=== PATIENT | female | born 1970 | race American Indian/Alaskan Native ===

== ENCOUNTER 2019-03-19 22:03 | Emergency (ER) | payer OTHER ==
[2019-03-19] MEDS ORDERED: Sodium Chloride 0.9% 1,000 ML IV ONE (22:19)
--- NOTE | 2019-03-19 22:35 | EDM.PDOC ---
ED HPI GENERAL MEDICAL PROBLEM - General Chief Complaint: General Stated Complaint: EXHAUSTION Time Seen by Provider: 03/19/19 22:15 - History of Present Illness INITIAL COMMENTS - FREE TEXT/NARRATIVE: HISTORY AND PHYSICAL: History of present illness: Patient's 48-year-old white female presents with concern of generalized weakness and diarrhea over last several days no fever chills nausea vomiting or other complaints. Patient has history of hypertension. Review of systems: As per history of present illness and below otherwise all systems reviewed and negative. Past medical history: As per history of present illness and as reviewed below otherwise noncontributory. Surgical history: As per history of present illness and as reviewed below otherwise noncontributory. Social history: No reported history of drug or alcohol abuse. Family history: As per history of present illness and as reviewed below otherwise noncontributory. Physical exam: HEENT: Atraumatic, normocephalic, pupils reactive, negative for conjunctival pallor or scleral icterus, mucous membranes dry, throat clear, neck supple, nontender, trachea midline. Lungs: Clear to auscultation, breath sounds equal bilaterally, chest nontender. Heart: S1S2, regular, negative for clicks, rubs, or JVD. Abdomen: Soft, nondistended, nontender. Negative for masses or hepatosplenomegaly. Negative for costovertebral tenderness. Pelvis: Stable nontender. Genitourinary: Deferred. Rectal: Deferred. Extremities: Atraumatic, negative for cords or calf pain. Neurovascular unremarkable. Neuro: Awake, alert, oriented. Cranial nerves II through XII unremarkable. Cerebellum unremarkable. Motor and sensory unremarkable throughout. Exam nonfocal. Diagnostics: CBC CMP stool for C&S O&P and C. difficile EKG Therapeutics: Saline 1 L bolus Impression: #1 diarrhea #2 dehydration Definitive disposition and diagnosis as appropriate pending reevaluation and review of above. - Related Data Allergies Allergy/AdvReac Type Severity Reaction Status Date / Time No Known Allergies Allergy Verified 03/19/19 22:12 Home Meds: Home Meds Lisinopril 03/19/19 [History] hydroCHLOROthiazide [Hydrochlorothiazide] 03/19/19 [History] Past Medical History - Past Surgical History Female Surgical History: Reports: Tubal Ligation Social & Family History - Tobacco Use Smoking Status *Q: Current Every Day Smoker Years of Tobacco use: 20 Packs/Tins Daily: 0.5 - Caffeine Use Caffeine Use: Reports: Coffee - Recreational Drug Use Recreational Drug Use: No ED ROS GENERAL - Review of Systems Review Of Systems: ROS reveals no pertinent complaints other than HPI. ED EXAM, GENERAL - Physical Exam Exam: See Below (See dictation) Course - Vital Signs Last Recorded V/S: Last Vital Signs Temp 35.7 C 03/19/19 22:16 Pulse 82 03/20/19 00:11 Resp 17 03/20/19 00:11 BP 114/69 03/20/19 00:11 Pulse Ox 98 03/20/19 00:11 - Orders/Labs/Meds Orders: Active Orders 24 hr Category Date Time Status EKG Documentation Completion [RC] STAT Care 03/19/19 22:18 Active CDIFF TOX A+B [OP] Stat Lab 03/19/19 22:19 Ordered CULTURE STOOL + CAMPY+SHIGATOX [RM] Stat Lab 03/19/19 22:19 Ordered CULTURE URINE [RM] Stat Lab 03/19/19 23:38 Received UA W/MICROSCOPIC [URIN] Stat Lab 03/19/19 23:38 Results Isolation [COMM] Stat Oth 03/19/19 22:19 Ordered Labs: Laboratory Tests 03/19/19 03/19/19 03/19/19 Range/Units 22:35 22:35 23:38 WBC 14.22 H (4.0-11.0) K/uL RBC 3.73 L (4.30-5.90) M/uL Hgb 10.9 L (12.0-16.0) g/dL Hct 34.6 L (36.0-46.0) % MCV 92.8 (80.0-98.0) fL MCH 29.2 (27.0-32.0) pg MCHC 31.5 (31.0-37.0) g/dL RDW Std Deviation 48.6 (28.0-62.0) fl RDW Coeff of Anne 14 (11.0-15.0) % Plt Count 298 (150-400) K/uL MPV 11.60 (7.40-12.00) fL Neut % (Auto) 72.6 (48.0-80.0) % Lymph % (Auto) 20.5 (16.0-40.0) % [place] % (Auto) 6.1 (0.0-15.0) % Eos % (Auto) 0.7 (0.0-7.0) % Baso % (Auto) 0.1 (0.0-1.5) % Neut # (Auto) 10.3 H (1.4-5.7) K/uL Lymph # (Auto) 2.9 H (0.6-2.4) K/uL [place] # (Auto) 0.9 H (0.0-0.8) K/uL Eos # (Auto) 0.1 (0.0-0.7) K/uL Baso # (Auto) 0.0 (0.0-0.1) K/uL Nucleated RBC % 0.0 /100WBC Nucleated RBCs # 0 K/uL Sodium 140 (136-145) mmol/L Potassium 4.4 (3.5-5.1) mmol/L Chloride 103 (98-107) mmol/L Carbon Dioxide 28.0 (21.0-32.0) mmol/L BUN 33 H (7.0-18.0) mg/dL Creatinine 1.3 H (0.6-1.0) mg/dL Est Cr Clr Drug Dosing 50.35 mL/min Estimated GFR (MDRD) 43.4 ml/min Glucose 115 H (74-106) mg/dL Calcium 8.9 (8.5-10.1) mg/dL Total Bilirubin 0.2 (0.2-1.0) mg/dL AST 30 (15-37) IU/L ALT 51 (14-63) IU/L Alkaline Phosphatase 86 (46-116) U/L Total Protein 7.4 (6.4-8.2) g/dL Albumin 3.5 (3.4-5.0) g/dL Globulin 3.9 (2.6-4.0) g/dL Albumin/Globulin Ratio 0.9 (0.9-1.6) Urine Color YELLOW Urine Appearance CLEAR Urine pH 5.5 (5.0-8.0) Ur Specific [place] 1.025 (1.001-1.035) Urine Protein NEGATIVE (NEGATIVE) mg/dL Urine Glucose (UA) NEGATIVE (NEGATIVE) mg/dL Urine Ketones NEGATIVE (NEGATIVE) mg/dL Urine Occult Blood TRACE-INTACT H (NEGATIVE) Urine Nitrite NEGATIVE (NEGATIVE) Urine Bilirubin NEGATIVE (NEGATIVE) Urine Urobilinogen 0.2 (<2.0) EU/dL Ur Leukocyte Esterase TRACE H (NEGATIVE) Meds: Medications Discontinued Medications Generic Name Dose Route Start Last Admin Trade Name Tasha PRN Reason Stop Dose Admin Sodium Chloride 1,000 mls @ 999 mls/hr 03/19/19 22:19 03/19/19 22:47 Normal Saline IV 03/19/19 23:19 999 mls/hr STAT ONE Administration Iopamidol 80 ml 03/20/19 00:03 03/20/19 00:04 Isovue Multipack-370 (76%) IVPUSH 03/20/19 00:04 80 ml ONETIME ONE Administration Departure - Departure Time of Disposition: 00:57 Disposition: Home, Self-Care 01 Condition: Good Clinical Impression: Diarrhea, Dehydration - Discharge Information Referrals: PCP,Unknown [Primary Care Provider] - Forms: ED Department Discharge Additional Instructions: The following information is given to patients seen in the emergency department who are being discharged to home. This information is to outline your options for follow-up care. We provide all patients seen in our emergency department with a follow-up referral. The need for follow-up, as well as the timing and circumstances, are variable depending upon the specifics of your emergency department visit. If you don't have a primary care physician on staff, we will provide you with a referral. We always advise you to contact your personal physician following an emergency department visit to inform them of the circumstance of the visit and for follow-up with them and/or the need for any referrals to a consulting specialist. The emergency department will also refer you to a specialist when appropriate. This referral assures that you have the opportunity for followup care with a specialist. All of these measure are taken in an effort to provide you with optimal care, which includes your followup. Under all circumstances we always encourage you to contact your private physician who remains a resource for coordinating your care. When calling for followup care, please make the office aware that this follow-up is from your recent emergency room visit. If for any reason you are refused follow-up, please contact the [facility] emergency department at and asked to speak to the emergency department charge nurse. Push fluids clear liquids as discussed avoid dairy 72 hours follow-up primary medical doctor return as needed as discussed - My Orders Last 24 Hours: My Active Orders 03/19/19 22:18 EKG Documentation Completion [RC] STAT 03/19/19 22:19 CDIFF TOX A+B [OP] Stat CULTURE STOOL + CAMPY+SHIGATOX [RM] Stat Isolation [COMM] Stat 03/19/19 23:38 CULTURE URINE [RM] Stat UA W/MICROSCOPIC [URIN] Stat - Assessment/Plan Last 24 Hours: My Active Orders 03/19/19 22:18 EKG Documentation Completion [RC] STAT 03/19/19 22:19 CDIFF TOX A+B [OP] Stat CULTURE STOOL + CAMPY+SHIGATOX [RM] Stat Isolation [COMM] Stat 03/19/19 23:38 CULTURE URINE [RM] Stat UA W/MICROSCOPIC [URIN] Stat
[2019-03-20] MEDS ORDERED: Iopamidol 755 MG/ML 500 ML Multipack Bottle IVPUSH ONE (00:03)
--- NOTE | 2019-03-20 00:34 | CT ---
INDICATION: Bloody stools x1 day. History of hernia TECHNIQUE: CT abdomen and pelvis acquired with IV contrast. 80 cc Isovue 370 COMPARISON: None FINDINGS: Lower chest: Unremarkable. Liver: Unremarkable. Spleen: Unremarkable. Pancreas: Unremarkable. Gallbladder and bile ducts: Unremarkable. Kidneys: Unremarkable. Adrenal glands: Unremarkable. GI tract: Large ventral hernia containing normal appearing loops of large and small bowel.. Appendix is normal. Vascular structures: Unremarkable. Lymph nodes: Unremarkable. Miscellaneous: Unremarkable. No free air or significant free fluid. Pelvic Organs: Unremarkable. Bones: Unremarkable for age. IMPRESSION: Large ventral abdominal wall hernia containing normal appearing loops of large and small bowel. No definitive findings to explain the patient`s bloody stools. Dictated by Isidro Lin MD @ 03/20/2019 12:33:15 AM Please note that all CT scans at this facility use dose modulation, iterative reconstruction, and/or weight-based dosing when appropriate to reduce radiation dose to as low as reasonably achievable. Dictated by: Isidro Lin MD @ 03/20/2019 00:33:26 (Electronically Signed)
== END 2019-03-20 01:07 | disposition home or self-care (01) ==
LOC: MW.ED 22:03
DX: E86.0 Dehydration (principal); R19.7 Diarrhea, unspecified; F17.210 Nicotine dependence, cigarettes, uncomplicated; Z79.899 Other long term (current) drug therapy
CPT/HCPCS: 36415; 74177; 80053; 81001; 85025; 87086; 93005; 96360; 99284; J7040; Q9967; 99283

== ENCOUNTER 2021-01-14 15:08 | Emergency (ER) | payer OTHER ==
[2021-01-14] MEDS ORDERED: Aspirin 81 MG Tab.Chew PO ONE (15:29)
[2021-01-14] MEDS ORDERED: Sodium Chloride 0.9% 2.5 ML Syringe FLUSH PRN (15:29)
[2021-01-14] MEDS ORDERED: Nitroglycerin 0.4 MG Tab.SL SL ONE ×2 (15:29→16:41)
[2021-01-14] MEDS ORDERED: Sodium Chloride 0.9% 10 ML Syringe FLUSH PRN (15:29)
--- NOTE | 2021-01-14 15:48 | CR ---
INDICATION: Chest pain TECHNIQUE: Chest 1 view COMPARISON: None FINDINGS: Cardiovascular and mediastinum: Heart size and vasculature are normal in caliber and appearance. Lungs and pleural spaces: Lungs are clear. No sign of infiltrate or mass. No sign of pleural effusion. No pneumothorax. Bones and soft tissues: No significant findings. IMPRESSION: No acute or significant findings. Dictated by John Gaspar MD @ Jan 14 2021 3:47PM Signed by Dr. John Gaspar @ Jan 14 2021 3:47PM
[2021-01-14 15:59] LABS: BLOOD UREA NITROGEN,BUN 16 mg/dL (7.0-18.0); CARBON DIOXIDE,CO2 26.8 mmol/L (21.0-32.0); CHLORIDE,CL 101 mmol/L (98-107); GLUCOSE RANDOM 116 mg/dL (74-106); POTASSIUM,K 3.6 mmol/L (3.5-5.1); SODIUM,NA 138 mmol/L (136-145)
--- NOTE | 2021-01-14 16:05 | EDM.PDOC ---
ED HPI GENERAL MEDICAL PROBLEM - General Chief Complaint: Chest Pain Stated Complaint: chest pains Time Seen by Provider: 01/14/21 15:11 - History of Present Illness INITIAL COMMENTS - FREE TEXT/NARRATIVE: 50-year-old female with a history of hypertension noncompliant on her lisinopril and hydrochlorothiazide who is presenting with chest pain. Patient reports a few hours of constant left-sided chest pressure initially 7 out of 10 now 5 out of 10 with radiation to the left neck and jaw. No vertigo no shortness of breath no tearing pain no pain to the back. No nausea or vomiting no syncope or near syncope. Patient denies prior similar episodes. She states that she sometimes misses her blood pressure medications she states that she took them both approximately 2 hours ago and does not take them every day. She says that her normal systolic is in the 190s. chest Pain Score (Numeric/FACES): 6 - Related Data Allergies Allergy/AdvReac Type Severity Reaction Status Date / Time No Known Allergies Allergy Verified 01/14/21 15:13 Home Meds: Home Meds Lisinopril 03/19/19 [History] hydroCHLOROthiazide [Hydrochlorothiazide] 03/19/19 [History] Past Medical History Cardiovascular History: Reports: Hypertension - Past Surgical History Female Surgical History: Reports: Tubal Ligation Social & Family History - Family History Family Medical History: No Pertinent Family History - Tobacco Use Tobacco Use Status *Q: Current Every Day Tobacco User Years of Tobacco use: 20 Packs/Tins Daily: 0.5 - Caffeine Use Caffeine Use: Reports: Coffee - Recreational Drug Use Recreational Drug Use: No ED ROS GENERAL - Review of Systems Review Of Systems: See Below Free Text/Narrative/Comment: General: No fever. Skin: No rash. Eyes: No vision problems. ENT: No sore throat. Neck: No neck stiffness. Respiratory: No shortness of breath. Cardiac: Per HPI Gastrointestinal: No nausea, vomiting or abdominal pain. Urinary: No dysuria. Musculoskeletal: No myalgias/arthralgias. Neurologic: No headache. ED EXAM, GENERAL - Physical Exam Exam: See Below Free Text/Narrative:: General Appearance: No acute distress, appears comfortable Skin: No rash HEENT: Normocephalic/atraumatic, sclera anicteric, mucous membranes moist Neck: Normal range of motion Chest and Lungs: Bilateral breath sounds, clear to auscultation Cardiovascular: Regular rate and rhythm, no murmur Abdomen: Soft, non-tender Back: Normal Musculoskeletal: No edema or tenderness Neurologic: Awake, alert, no obvious deficits, moving all extremities Psychiatric: Appropriate, cooperative #1 Interpretation EKG Date: 01/14/21 Time: 15:20 EKG Interpretation Comments: Normal sinus rhythm rate of 75 nonspecific intraventricular conduction delay QRS is 119 no acute ischemia normal axis Course - Vital Signs Last Recorded V/S: Last Vital Signs Temp 97.2 F 01/14/21 15:10 Pulse 70 01/14/21 17:35 Resp 18 01/14/21 17:35 BP 156/90 H 01/14/21 17:35 Pulse Ox 94 L 01/14/21 17:35 - Orders/Labs/Meds Orders: Active Orders 24 hr Category Date Time Status COVID-19/FLU A+B [MOLEC] Stat Lab 01/14/21 16:43 Ordered Sodium Chloride 0.9% [Saline Flush] Med 01/14/21 15:29 Active 10 ml FLUSH ASDIRECTED PRN Sodium Chloride 0.9% [Saline Flush] Med 01/14/21 15:29 Active 2.5 ml FLUSH ASDIRECTED PRN Saline Lock Insert [OM.PC] Stat Oth 01/14/21 15:29 Ordered Medication Orders Sodium Chloride (Sodium Chloride 0.9% 10 Ml Syringe) 10 ml FLUSH ASDIRECTED PRN PRN Reason: Keep Vein Open Last Admin: 01/14/21 15:44 Dose: 10 ml Documented by: BIANCA Sodium Chloride (Sodium Chloride 0.9% 2.5 Ml Syringe) 2.5 ml FLUSH ASDIRECTED PRN PRN Reason: Keep Vein Open Last Admin: 01/14/21 15:44 Dose: 2.5 ml Documented by: BIANCA Labs: Laboratory Tests 01/14/21 01/14/21 Range/Units 15:19 15:19 WBC 12.82 H (4.0-11.0) K/uL RBC 4.97 (4.30-5.90) M/uL Hgb 14.7 (12.0-16.0) g/dL Hct 46.2 H (36.0-46.0) % MCV 93.0 (80.0-98.0) fL MCH 29.6 (27.0-32.0) pg MCHC 31.8 (31.0-37.0) g/dL RDW Std Deviation 47.7 (28.0-62.0) fl RDW Coeff of Anne 14 (11.0-15.0) % Plt Count 199 (150-400) K/uL MPV 12.90 H (7.40-12.00) fL Neut % (Auto) 77.9 (48.0-80.0) % Lymph % (Auto) 14.4 L (16.0-40.0) % [place] % (Auto) 6.4 (0.0-15.0) % Eos % (Auto) 1.1 (0.0-7.0) % Baso % (Auto) 0.2 (0.0-1.5) % Neut # (Auto) 10.0 H (1.4-5.7) K/uL Lymph # (Auto) 1.9 (0.6-2.4) K/uL [place] # (Auto) 0.8 (0.0-0.8) K/uL Eos # (Auto) 0.1 (0.0-0.7) K/uL Baso # (Auto) 0.0 (0.0-0.1) K/uL Nucleated RBC % 0.0 /100WBC Nucleated RBCs # 0 K/uL Sodium 138 (136-145) mmol/L Potassium 3.6 (3.5-5.1) mmol/L Chloride 101 (98-107) mmol/L Carbon Dioxide 26.8 (21.0-32.0) mmol/L BUN 16 (7.0-18.0) mg/dL Creatinine 0.8 (0.6-1.0) mg/dL Est Cr Clr Drug Dosing 79.99 mL/min Estimated GFR (MDRD) > 60.0 ml/min Glucose 116 H (74-106) mg/dL Calcium 8.7 (8.5-10.1) mg/dL Total Bilirubin 0.1 L (0.2-1.0) mg/dL AST 14 L (15-37) IU/L ALT 25 (14-63) IU/L Alkaline Phosphatase 113 (46-116) U/L Troponin I < 0.050 (0.000-0.056) ng/mL Total Protein 7.8 (6.4-8.2) g/dL Albumin 3.4 (3.4-5.0) g/dL Globulin 4.4 H (2.6-4.0) g/dL Albumin/Globulin Ratio 0.8 L (0.9-1.6) Meds: Medications Generic Name Dose Route Start Last Admin Trade Name Freq PRN Reason Stop Dose Admin Sodium Chloride 10 ml 01/14/21 15:29 01/14/21 15:44 Sodium Chloride 0.9% 10 Ml Syringe FLUSH 10 ml ASDIRECTED PRN Administration Keep Vein Open Sodium Chloride 2.5 ml 01/14/21 15:29 01/14/21 15:44 Sodium Chloride 0.9% 2.5 Ml Syringe FLUSH 2.5 ml ASDIRECTED PRN Administration Keep Vein Open Discontinued Medications Generic Name Dose Route Start Last Admin Trade Name Freq PRN Reason Stop Dose Admin Aspirin 324 mg 01/14/21 15:29 01/14/21 15:43 Aspirin 81 Mg Tab.Chew PO 01/14/21 15:30 324 mg ONETIME ONE Administration Morphine Sulfate 2 mg 01/14/21 16:41 Morphine 2 Mg/Ml Syringe IVPUSH 01/14/21 16:42 ONETIME ONE Nitroglycerin 0.4 mg 01/14/21 15:29 01/14/21 15:44 Nitroglycerin 0.4 Mg Tab.Sl SL 01/14/21 15:30 0.4 mg ONETIME ONE Administration Nitroglycerin 0.4 mg 01/14/21 16:41 Nitroglycerin 0.4 Mg Tab.Sl SL 01/14/21 16:42 ONETIME ONE Ondansetron HCl 4 mg 01/14/21 16:42 Ondansetron 4 Mg/2 Ml Sdv IVPUSH 01/14/21 16:43 ONETIME ONE Departure - Departure Time of Disposition: 17:53 Disposition: Against Medical Advice 07 Condition: Good Clinical Impression: Uncontrolled hypertension, Exertional chest pain - Discharge Information *PRESCRIPTION DRUG MONITORING PROGRAM REVIEWED*: Not Applicable *COPY OF PRESCRIPTION DRUG MONITORING REPORT IN PATIENT PATRICK: Not Applicable Instructions: Hypertension, Adult, [id number], Angina, [id number] Forms: ED Department Discharge Additional Instructions: As we discussed you are leaving AGAINST MEDICAL ADVICE. I am very concerned that the chest pain that you have when you walk around is due to a partially blocked artery in your heart and that you could be having a small heart attack. We discussed staying for additional blood work and blood pressure management. However you have opted to leave AGAINST MEDICAL ADVICE. We discussed that severe high blood pressure such as years puts you at risk for heart attack and stroke and that because you are having exertional chest pain you could be having a small heart attack at this time. We also discussed that these conditions can lead to permanent disability or . Despite these risks you have made the choice to leave AGAINST MEDICAL ADVICE. You are welcome and encouraged to return to the ER at any time should you change your mind and please follow-up with your primary care doctor soon as possible. The following information is given to patients seen in the emergency department who are being discharged to home. This information is to outline your options for follow-up care. We provide all patients seen in our emergency department with a follow-up referral. The need for follow-up, as well as the timing and circumstances, are variable depending upon the specifics of your emergency department visit. If you don't have a primary care physician on staff, we will provide you with a referral. We always advise you to contact your personal physician following an emergency department visit to inform them of the circumstance of the visit and for follow-up with them and/or the need for any referrals to a consulting specialist. The emergency department will also refer you to a specialist when appropriate. This referral assures that you have the opportunity for follow-up care with a specialist. All of these measure are taken in an effort to provide you with optimal care, which includes your follow-up. Under all circumstances we always encourage you to contact your private physician who remains a resource for coordinating your care. When calling for follow-up care, please make the office aware that this follow-up is from your recent emergency room visit. If for any reason you are refused follow-up, please contact the [facility] Emergency Depart ment at and asked to speak to the emergency department charge nurse. Sepsis Event Note (ED) - Evaluation Sepsis Screening Result: No Definite Risk - Focused Exam Vital Signs: Vital Signs Temp Pulse Resp BP BP Pulse Ox 01/14/21 17:35 70 18 156/90 H 94 L 01/14/21 15:47 75 18 164/95 H 95 01/14/21 15:45 72 20 185/100 H 96 01/14/21 15:44 185/100 H 01/14/21 15:10 97.2 F 80 18 96 - My Orders Last 24 Hours: My Active Orders 01/14/21 15:29 Sodium Chloride 0.9% [Saline Flush] 10 ml FLUSH ASDIRECTED PRN Sodium Chloride 0.9% [Saline Flush] 2.5 ml FLUSH ASDIRECTED PRN Saline Lock Insert [OM.PC] Stat 01/14/21 16:43 COVID-19/FLU A+B [MOLEC] Stat - Assessment/Plan Last 24 Hours: My Active Orders 01/14/21 15:29 Sodium Chloride 0.9% [Saline Flush] 10 ml FLUSH ASDIRECTED PRN Sodium Chloride 0.9% [Saline Flush] 2.5 ml FLUSH ASDIRECTED PRN Saline Lock Insert [OM.PC] Stat 01/14/21 16:43 COVID-19/FLU A+B [MOLEC] Stat Assessment:: 50-year-old female presenting with severe hypertension and chest pain. Though she is quite hypertensive and she has no vertigo that would suggest vertebral a rtery dissection she has no severe pain she has no tearing pain she has no pain in the back given this I think aortic dissection is unlikely. ACS is certainly a consideration symptomatic hypertension is a consideration. We will attempt to lower blood pressure by approximately 25%. Sublingual nitroglycerin has been ordered aspirin as well CBC CMP troponin chest x-ray pending and will reassess. Following the nitro her systolic is decreased to 162 her pain is improved but is still present I do not wish to make her more hypotensive and so we will reassess her chest pain in 15 minutes. 1650: Patient's chest pain had resolved. Initial labs with normal troponin white blood cell count minimally elevated. Patient had recurrence of chest pain with the exertion of walking to the bathroom. We will repeat sublingual nitro and give a small dose of morphine as well. Given this and her heart score 4 I think admission for serial enzymes is prudent and will discuss with the hospitalist Jessie davis pending. 1750: There was a delay in final disposition due to simultaneous stroke codes and STEMI's and other patients. The patient now does not agree to admission and wants to leave AGAINST MEDICAL ADVICE. We discussed again that I am concerned that her exertional chest pain represents ischemic heart disease and concerned about the potential for missed heart attack I am concerned that uncontrolled high blood pressure as high as hers can lead to stroke. She is aware of all of these concerns. She also understands that these conditions can lead to permanent disability or . Despite these risks she is adamant that she is not staying in the hospital and that she is going to follow-up with her clinic. She demonstrates understanding of these risks and despite that is adamant that she is leaving against advice. Patient will sign out AMA. Patient is chest pain-free at this time
[2021-01-14] MEDS ORDERED: Morphine 2 MG/ML SYRINGE IVPUSH ONE (16:41)
[2021-01-14] MEDS ORDERED: Ondansetron 4 MG/2 ML SDV IVPUSH ONE (16:42)
== END 2021-01-14 18:08 | disposition left against medical advice (07) ==
LOC: MW.ED 15:08
DX: R07.89 Other chest pain (principal); I10 Essential (primary) hypertension; Z72.0 Tobacco use; Z79.899 Other long term (current) drug therapy
CPT/HCPCS: 36415; 71045; 80053; 84484; 85025; 93005; 99285; A9270; 93010

== ENCOUNTER 2021-01-14 22:09 | Observation (INO) | payer OTHER ==
[2021-01-14 22:40] LABS: BLOOD UREA NITROGEN,BUN 12 mg/dL (7.0-18.0); CARBON DIOXIDE,CO2 26.9 mmol/L (21.0-32.0); CHLORIDE,CL 102 mmol/L (98-107); GLUCOSE RANDOM 114 mg/dL (74-106); POTASSIUM,K 3.4 mmol/L (3.5-5.1); SODIUM,NA 138 mmol/L (136-145)
--- NOTE | 2021-01-14 23:09 | EDM.PDOC ---
ED HPI GENERAL MEDICAL PROBLEM - General Chief Complaint: Cardiovascular Problem Stated Complaint: CHEST PAIN Time Seen by Provider: 01/14/21 22:20 - History of Present Illness INITIAL COMMENTS - FREE TEXT/NARRATIVE: HISTORY AND PHYSICAL: History of present illness: This is a 50-year-old female with a history significant for hypertension and tobacco use who presents to the ER today for further evaluation of chest pain that she was having. Patient reports that she was seen earlier this afternoon and was evaluated by Dr. Hernandez who had recommended that she be admitted to the hospital for further cardiac evaluation. At that time, the patient felt that she was fine to go home and signed out AGAINST MEDICAL ADVICE despite recommendations by Dr. Lane that she be admitted to the hospital. After going home patient reports that she continued to have the discomfort in her chest and got concerned and felt that she should have been admitted to the hospital and regretted leaving his medical advice. Patient reports that she return to the ED for further cardiac evaluation and to be admitted to the hospital per Dr. Hernandez's recommendations. Patient denies any recent fevers, shakes, chills, vomiting, diarrhea, dysuria, frequency, urgency. Patient reports that the pain feels like a pressure sensation in her mid sternum which radiates to her left arm and neck. Patient reports some associated shortness of breath with no nausea or vomiting. Patient denies any diaphoresis. Patient reports that the pain increases when she walks but also increases when she lays flat in bed today. Patient reports the pain increases when she bends over as well. Review of systems: As per history of present illness and below otherwise all systems reviewed and negative. Past medical history: As per history of present illness and as reviewed below otherwise noncontributory. Surgical history: As per history of present illness and as reviewed below otherwise noncontributory. Social history: No reported history of drug or alcohol abuse. Family history: As per history of present illness and as reviewed below otherwise noncontributory. Physical exam: This patient was seen and evaluated during the 2019 SARS-CoV-2 novel coronavirus pandemic period. Community viral transmission is ongoing at time of this encounter and the emergency department is operating under pandemic response procedures. Constitutional: Patient is oriented to person, place, and time. Appears well- developed and well-nourished. No distress. HEENT: Moist mucous membranes Head: Normocephalic and atraumatic Eyes: Right eye exhibits no discharge. Left eye exhibits no discharge. No scleral icterus Neck: Normal range of motion. No tracheal deviation present. Cardiovascular: Normal rate and regular rhythm. Pulmonary: Effort normal, no respiratory distress. Abdominal: No distention Musculoskeletal: Normal range of motion Neurologic: Alert and oriented to person, place and time. Skin: [place], warm and dry. Psychiatric: Normal mood and affect. Behavior is normal. Judgment and thought content normal. Nursing note and vital signs have been reviewed Diagnostics: EKG: As interpreted by ER physician: Luiza: Nonspecific ST-T wave abnormalities Normal axis No evidence of ST elevation [place] Normal sinus rhythm heart rate of 91 Therapeutics: Aspirin 325 mg p.o. Assessment and plan: This is a 50-year-old female with moderate risk for coronary disease who presents ER today complaining of midsternal chest pressure x1 day. Patient was seen and evaluated in the ER earlier today by Dr. Burnham and patient was recommended for admission to the hospital for further cardiac evaluation. At that time. The patient signed out AGAINST MEDICAL ADVICE and felt that the pain will resolve on its own. Patient reports that the pain is been persistent and regretted signing out AGAINST MEDICAL ADVICE and came to the ER to resume with the plan to be admitted per Dr. Hernandez. At this time, the patient's labs are all within normal limits and her second EKG is unremarkable. I will discuss with the hospitalist to see if we can bring her in for observation. Definitive disposition and diagnosis as appropriate pending reevaluation and review of above. chest Pain Score (Numeric/FACES): 6 - Related Data Allergies Allergy/AdvReac Type Severity Reaction Status Date / Time No Known Allergies Allergy Verified 01/15/21 02:31 Home Meds: Home Meds Lisinopril 20 mg PO DAILY 03/19/19 [History] hydroCHLOROthiazide [Hydrochlorothiazide] 25 mg PO DAILY 03/19/19 [History] Past Medical History Cardiovascular History: Reports: Hypertension - Past Surgical History Female Surgical History: Reports: Tubal Ligation Social & Family History - Family History Family Medical History: No Pertinent Family History - Caffeine Use Caffeine Use: Reports: Tea - Recreational Drug Use Recreational Drug Use: No ED ROS GENERAL - Review of Systems Review Of Systems: See Below ED EXAM, GENERAL - Physical Exam Exam: See Below Course - Vital Signs Last Recorded V/S: Last Vital Signs Temp 97.5 F 01/17/21 03:35 Pulse 82 01/17/21 03:35 Resp 18 01/17/21 03:35 BP 126/60 01/17/21 03:35 Pulse Ox 95 01/17/21 03:35 - Orders/Labs/Meds Orders: Medication Orders Acetaminophen (Acetaminophen 325 Mg Tab) 650 mg PO Q4H PRN PRN Reason: Pain (Mild 1-3)/fever Last Admin: 01/16/21 22:49 Dose: 650 mg Documented by: ALIX Albuterol/Ipratropium (Albuterol/Ipratropium 3.0-0.5 Mg/3 Ml Neb Soln) 3 ml NEB Q4HRRT PRN PRN Reason: Shortness Of Breath/wheezing Aspirin (Aspirin 81 Mg Tab.Ec) 81 mg PO DAILY [facility] Last Admin: 01/16/21 09:33 Dose: 81 mg Documented by: LOS Cosigned by: BARRY Admin: 01/15/21 08:29 Dose: 81 mg Documented by: SANDER Hydrochlorothiazide (Hydrochlorothiazide 25 Mg Tab) 25 mg PO DAILY [facility] Last Admin: 01/16/21 09:34 Dose: 25 mg Documented by: LOS Cosigned by: BARRY Admin: 01/15/21 08:30 Dose: 25 mg Documented by: SANDER Piperacillin Sod/Tazobactam (Sod 3.375 gm/ Sodium Chloride) 50 mls @ 100 mls/hr IV Q6H [facility] Last Admin: 01/17/21 00:56 Dose: 100 mls/hr Documented by: Infusion: 01/16/21 20:23 Dose: 100 mls/hr Documented by: Admin: 01/16/21 19:53 Dose: 100 mls/hr Documented by: DEANNE Influenza Virus Vaccine (Flu Vacc [id number] 36mos Up/Pf 60 Mcg/0.5 Ml Syringe) 60 mcg IM .ONCE ONE Stop: 01/17/21 15:01 Labetalol HCl (Labetalol 100 Mg/20 Ml Mdv) 20 mg IVPUSH Q6H PRN; Protocol PRN Reason: Hypertension Lisinopril (Lisinopril 10 Mg Tab) 20 mg PO DAILY [facility] Last Admin: 01/16/21 09:33 Dose: 20 mg Documented by: LOS Cosigned by: BARRY Admin: 01/15/21 08:29 Dose: 20 mg Documented by: SANDER Morphine Sulfate (Morphine 2 Mg/Ml Syringe) 1 mg IVPUSH Q3H PRN PRN Reason: Pain (severe 7-10) Nitroglycerin (Nitroglycerin 0.4 Mg Tab.Sl) 0.4 mg SL Q5M PRN PRN Reason: Chest Pain Last Admin: 01/15/21 00:24 Dose: 0.4 mg Documented by: Admin: 01/15/21 00:20 Dose: 0.4 mg Documented by: Admin: 01/15/21 00:14 Dose: 0.4 mg Documented by: KARLEY Ondansetron HCl (Ondansetron 4 Mg/2 Ml Sdv) 4 mg IVPUSH Q4H PRN PRN Reason: Nausea/Vomiting Labs: Laboratory Tests 01/14/21 01/14/21 01/14/21 Range/Units 22:15 22:15 22:15 WBC 16.92 H (4.0-11.0) K/uL RBC 4.98 (4.30-5.90) M/uL Hgb 14.7 (12.0-16.0) g/dL Hct 45.8 (36.0-46.0) % MCV 92.0 (80.0-98.0) fL MCH 29.5 (27.0-32.0) pg MCHC 32.1 (31.0-37.0) g/dL RDW Std Deviation 47.5 (28.0-62.0) fl RDW Coeff of Anne 14 (11.0-15.0) % Plt Count 194 (150-400) K/uL MPV 12.10 H (7.40-12.00) fL Neut % (Auto) 81.7 H (48.0-80.0) % Lymph % (Auto) 10.5 L (16.0-40.0) % [place] % (Auto) 7.1 (0.0-15.0) % Eos % (Auto) 0.6 (0.0-7.0) % Baso % (Auto) 0.1 (0.0-1.5) % Neut # (Auto) 13.8 H (1.4-5.7) K/uL Lymph # (Auto) 1.8 (0.6-2.4) K/uL [place] # (Auto) 1.2 H (0.0-0.8) K/uL Eos # (Auto) 0.1 (0.0-0.7) K/uL Baso # (Auto) 0.0 (0.0-0.1) K/uL Nucleated RBC % 0.0 /100WBC Nucleated RBCs # 0 K/uL Sodium 138 (136-145) mmol/L Potassium 3.4 L (3.5-5.1) mmol/L Chloride 102 (98-107) mmol/L Carbon Dioxide 26.9 (21.0-32.0) mmol/L BUN 12 (7.0-18.0) mg/dL Creatinine 0.8 (0.6-1.0) mg/dL Est Cr Clr Drug Dosing TNP Estimated GFR (MDRD) > 60.0 ml/min Glucose 114 H (74-106) mg/dL Hemoglobin A1c (4.5 - 6.2) % Calcium 9.0 (8.5-10.1) mg/dL Total Bilirubin 0.2 (0.2-1.0) mg/dL AST 12 L (15-37) IU/L ALT 23 (14-63) IU/L Alkaline Phosphatase 113 (46-116) U/L Troponin I < 0.050 (0.000-0.056) ng/mL Total Protein 7.8 (6.4-8.2) g/dL Albumin 3.5 (3.4-5.0) g/dL Globulin 4.3 H (2.6-4.0) g/dL Albumin/Globulin Ratio 0.8 L (0.9-1.6) Triglycerides 156 (0-200) mg/dL Cholesterol 176 (50-200) mg/dL LDL Cholesterol, Calc 98 (60-180) mg/dL VLDL Cholesterol 31 (5-55) mg/dL HDL Cholesterol 47 (40-60) mg/dL Cholesterol/HDL Ratio 3.7 (3.3-6.0) TSH 3rd Generation 1.07 (0.36-3.74) uIU/mL SARS-CoV-2 RNA (NIKA) (NEGATIVE) 01/14/21 01/14/21 Range/Units 22:15 22:18 WBC (4.0-11.0) K/uL RBC (4.30-5.90) M/uL Hgb (12.0-16.0) g/dL Hct (36.0-46.0) % MCV (80.0-98.0) fL MCH (27.0-32.0) pg MCHC (31.0-37.0) g/dL RDW Std Deviation (28.0-62.0) fl RDW Coeff of Anne (11.0-15.0) % Plt Count (150-400) K/uL MPV (7.40-12.00) fL Neut % (Auto) (48.0-80.0) % Lymph % (Auto) (16.0-40.0) % [place] % (Auto) (0.0-15.0) % Eos % (Auto) (0.0-7.0) % Baso % (Auto) (0.0-1.5) % Neut # (Auto) (1.4-5.7) K/uL Lymph # (Auto) (0.6-2.4) K/uL [place] # (Auto) (0.0-0.8) K/uL Eos # (Auto) (0.0-0.7) K/uL Baso # (Auto) (0.0-0.1) K/uL Nucleated RBC % /100WBC Nucleated RBCs # K/uL Sodium (136-145) mmol/L Potassium (3.5-5.1) mmol/L Chloride (98-107) mmol/L Carbon Dioxide (21.0-32.0) mmol/L BUN (7.0-18.0) mg/dL Creatinine (0.6-1.0) mg/dL Est Cr Clr Drug Dosing Estimated GFR (MDRD) ml/min Glucose (74-106) mg/dL Hemoglobin A1c 6.2 (4.5 - 6.2) % Calcium (8.5-10.1) mg/dL Total Bilirubin (0.2-1.0) mg/dL AST (15-37) IU/L ALT (14-63) IU/L Alkaline Phosphatase (46-116) U/L Troponin I (0.000-0.056) ng/mL Total Protein (6.4-8.2) g/dL Albumin (3.4-5.0) g/dL Globulin (2.6-4.0) g/dL Albumin/Globulin Ratio (0.9-1.6) Triglycerides (0-200) mg/dL Cholesterol (50-200) mg/dL LDL Cholesterol, Calc (60-180) mg/dL VLDL Cholesterol (5-55) mg/dL HDL Cholesterol (40-60) mg/dL Cholesterol/HDL Ratio (3.3-6.0) TSH 3rd Generation (0.36-3.74) uIU/mL SARS-CoV-2 RNA (NIKA) NEGATIVE (NEGATIVE) Meds: Medications Generic Name Dose Route Start Last Admin Trade Name Freq PRN Reason Stop Dose Admin Acetaminophen 650 mg 01/14/21 23:45 01/16/21 22:49 Acetaminophen 325 Mg Tab PO 650 mg Q4H PRN Administration Pain (Mild 1-3)/fever Albuterol/Ipratropium 3 ml 01/14/21 23:45 Albuterol/Ipratropium 3.0-0.5 Mg/3 Ml Neb Soln NEB Q4HRRT PRN Shortness Of Breath/wheezing Aspirin 81 mg 01/15/21 09:00 01/16/21 09:33 Aspirin 81 Mg Tab.Ec PO 81 mg DAILY QUAN Administration Hydrochlorothiazide 25 mg 01/15/21 09:00 01/16/21 09:34 Hydrochlorothiazide 25 Mg Tab PO 25 mg DAILY QUAN Administration Piperacillin Sod/Tazobactam 50 mls @ 100 mls/hr 01/16/21 19:00 01/17/21 00:56 Sod 3.375 gm/ Sodium Chloride IV 100 mls/hr Q6H QUAN Administration Influenza Virus Vaccine 60 mcg 01/17/21 15:00 Flu Vacc [id number] 36mos Up/Pf 60 Mcg/0.5 Ml Syringe IM 01/17/21 15:01 .ONCE ONE Labetalol HCl 20 mg 01/15/21 11:36 Labetalol 100 Mg/20 Ml Mdv IVPUSH Q6H PRN Hypertension Protocol Lisinopril 20 mg 01/15/21 09:00 01/16/21 09:33 Lisinopril 10 Mg Tab PO 20 mg DAILY QUAN Administration Morphine Sulfate 1 mg 01/15/21 07:26 Morphine 2 Mg/Ml Syringe IVPUSH Q3H PRN Pain (severe 7-10) Nitroglycerin 0.4 mg 01/15/21 00:05 01/15/21 00:24 Nitroglycerin 0.4 Mg Tab.Sl SL 0.4 mg Q5M PRN Administration Chest Pain Ondansetron HCl 4 mg 01/14/21 23:45 Ondansetron 4 Mg/2 Ml Sdv IVPUSH Q4H PRN Nausea/Vomiting Discontinued Medications Generic Name Dose Route Start Last Admin Trade Name Freq PRN Reason Stop Dose Admin Aspirin 325 mg 01/14/21 23:47 01/15/21 01:13 Aspirin 325 Mg Tab PO 01/14/21 23:48 Not Given ONETIME ONE Furosemide 20 mg 01/15/21 11:30 01/15/21 11:51 Furosemide 20 Mg/2 Ml Vial IVPUSH 01/15/21 11:31 20 mg NOW ONE Administration Pantoprazole Sodium 40 mg/ 10 mls @ 300 mls/hr 01/14/21 23:45 01/15/21 02:17 Sodium Chloride IV 01/14/21 23:46 300 mls/hr ONETIME ONE Administration Ceftriaxone Sodium/Dextrose 1 50 mls @ 100 mls/hr 01/15/21 14:45 01/16/21 14:08 gm/ Premix IV 100 mls/hr Q24H QUAN Administration Influenza Virus Vaccine 1 each 01/15/21 02:59 Pharmacy To Dose - Influenza Vaccine IM 01/15/21 03:00 ONETIME ONE Iopamidol 100 ml 01/16/21 16:26 01/16/21 16:31 Iopamidol 755 Mg/Ml 500 Ml Multipack Bottle IVPUSH 01/16/21 16:27 100 ml ONETIME STA Administration Lisinopril 20 mg 01/15/21 19:54 01/15/21 20:15 Lisinopril 10 Mg Tab PO 01/15/21 19:55 20 mg ONETIME ONE Administration Lisinopril 20 mg 01/16/21 20:38 01/16/21 20:43 Lisinopril 10 Mg Tab PO 01/16/21 20:39 20 mg ONETIME ONE Administration Morphine Sulfate 1 mg 01/14/21 23:45 Morphine 10 Mg/Ml Syringe IVPUSH 01/15/21 23:45 Q3H PRN Pain (severe 7-10) Pantoprazole Sodium Confirm 01/15/21 02:13 01/15/21 03:12 Pantoprazole 40 Mg Vial Administered 01/15/21 02:14 Not Given Dose 40 mg .ROUTE .STK-MED ONE Potassium Chloride 40 meq 01/15/21 07:40 01/15/21 08:29 Potassium Chloride 20 Meq Tab.Er PO 01/15/21 07:41 40 meq ONETIME ONE Administration Departure - Departure Time of Disposition: 23:09 Disposition: Refer to Observation Condition: Good Clinical Impression: Chest pain, Uncontrolled hypertension Sepsis Event Note (ED) - Evaluation Sepsis Screening Result: No Definite Risk
[2021-01-14] MEDS ORDERED: Pantoprazole 40 MG in Sodium Chloride 0.9% 10 ML IV ONE (23:45)
[2021-01-14] MEDS ORDERED: Acetaminophen 325 MG Tab PO PRN (23:45)
[2021-01-14] MEDS ORDERED: Morphine 10 MG/ML Syringe IVPUSH PRN (23:45)
[2021-01-14] MEDS ORDERED: Albuterol/Ipratropium 3.0-0.5 MG/3 ML Neb Soln NEB PRN (23:45)
[2021-01-14] MEDS ORDERED: Ondansetron 4 MG/2 ML SDV IVPUSH PRN (23:45)
[2021-01-14] MEDS ORDERED: Aspirin 325 MG Tab PO ONE (23:47)
[2021-01-15 00:04] LABS: HEMOGLOBIN A1C 6.2 %
[2021-01-15] MEDS: Nitroglycerin 0.4 MG Tab.SL SL PRN ×3 (00:14→00:24)
[2021-01-15] MEDS ORDERED: Pantoprazole 40 MG Vial ONE (02:13)
[2021-01-15] MEDS ORDERED: Morphine 2 MG/ML SYRINGE IVPUSH PRN (07:26)
--- NOTE | 2021-01-15 07:33 | PCM.HP.2 ---
<Greg Severino - Last Filed: 01/15/21 18:29> H&P History of Present Illness - General Date of Service: 01/15/21 Admit Problem/Dx: Admission Diagnosis/Problem Admission Diagnosis/Problem Chest pain - History of Present Illness Initial Comments - Free Text/Narative: 50-year-old female past medical history of uncontrolled hypertension, tobacco use admitted to the medical floor for ACS rule out. Patient presented to the ER due to chest pain that she was having for the past 2 days. Patient initially reported to the ER with chest pain but left AMA because she stated she felt fine. Later on that day patient came back to the ED with continued chest pain. On admission patient denied fever, chills, nausea, vomiting, diarrhea, constipation, dysuria, frequency, urinary retention, shortness of breath. Patient did continue to state mild chest pain also stating chest pressure when attempting to lay flat in the bed. White blood cell count on admission 16.9, potassium 3.4, magnesium 2.0, troponin negative x3. Patient given 325 mg p.o. aspirin one time in the ED. Will monitor blood pressure and monitor for any signs ACS. chest Pain Score (Numeric/FACES): 3 - Related Data Allergies/Adverse Reactions: Allergies Allergy/AdvReac Type Severity Reaction Status Date / Time No Known Allergies Allergy Verified 01/15/21 02:31 Home Medications: Home Meds Lisinopril 20 mg PO DAILY 03/19/19 [History] hydroCHLOROthiazide [Hydrochlorothiazide] 25 mg PO DAILY 03/19/19 [History] Past Medical History Cardiovascular History: Reports: Hypertension - Past Surgical History Female Surgical History: Reports: Tubal Ligation Social & Family History - Family History Family Medical History: No Pertinent Family History - Tobacco Use Tobacco Use Status *Q: Current Every Day Tobacco User Years of Tobacco use: 25 Packs/Tins Daily: 10 - Caffeine Use Caffeine Use: Reports: Coffee - Recreational Drug Use Recreational Drug Use: No H&P Review of Systems - Review of Systems: Review Of Systems: See Below General: Denies: Fever, Chills Pulmonary: Denies: Shortness of Breath, Wheezing Cardiovascular: Reports: Orthopnea, Other (mild chest pressure). Denies: Palpitations, Dyspnea on Exertion, Edema Gastrointestinal: Denies: Abdominal Pain, Decreased Appetite, Nausea, Vomiting Genitourinary: Denies: Dysuria Psychiatric: Denies: Confusion, Depression Neurological: Denies: Confusion, Dizziness, Headache Exam - Exam Exam: See Below - Vital Signs Vital Signs: Last Vital Signs Temp 97.8 F 01/15/21 02:30 Pulse 92 01/15/21 02:30 Resp 17 01/15/21 02:30 BP 180/85 H 01/15/21 02:30 Pulse Ox 94 L 01/15/21 02:30 Weight: 121.427 kg - Exam General: Alert, Oriented HEENT: Conjunctiva Clear Neck: Supple Lungs: Crackles (fine) Cardiovascular: Regular Rate, Regular Rhythm GI/Abdominal Exam: Normal Bowel Sounds, Soft, Non-Tender Extremities: No Pedal Edema Psychiatric: Alert - Patient Data Lab Results Last 24 hrs: Laboratory Results - last 24 hr 01/14/21 01/14/21 01/14/21 Range/Units 22:15 22:15 22:15 WBC 16.92 H (4.0-11.0) K/uL RBC 4.98 (4.30-5.90) M/uL Hgb 14.7 (12.0-16.0) g/dL Hct 45.8 (36.0-46.0) % MCV 92.0 (80.0-98.0) fL MCH 29.5 (27.0-32.0) pg MCHC 32.1 (31.0-37.0) g/dL RDW Std Deviation 47.5 (28.0-62.0) fl RDW Coeff of Anne 14 (11.0-15.0) % Plt Count 194 (150-400) K/uL MPV 12.10 H (7.40-12.00) fL Neut % (Auto) 81.7 H (48.0-80.0) % Lymph % (Auto) 10.5 L (16.0-40.0) % [place] % (Auto) 7.1 (0.0-15.0) % Eos % (Auto) 0.6 (0.0-7.0) % Baso % (Auto) 0.1 (0.0-1.5) % Neut # (Auto) 13.8 H (1.4-5.7) K/uL Lymph # (Auto) 1.8 (0.6-2.4) K/uL [place] # (Auto) 1.2 H (0.0-0.8) K/uL Eos # (Auto) 0.1 (0.0-0.7) K/uL Baso # (Auto) 0.0 (0.0-0.1) K/uL Nucleated RBC % 0.0 /100WBC Nucleated RBCs # 0 K/uL Sodium 138 (136-145) mmol/L Potassium 3.4 L (3.5-5.1) mmol/L Chloride 102 (98-107) mmol/L Carbon Dioxide 26.9 (21.0-32.0) mmol/L BUN 12 (7.0-18.0) mg/dL Creatinine 0.8 (0.6-1.0) mg/dL Est Cr Clr Drug Dosing TNP Estimated GFR (MDRD) > 60.0 ml/min Glucose 114 H (74-106) mg/dL Hemoglobin A1c (4.5 - 6.2) % Calcium 9.0 (8.5-10.1) mg/dL Total Bilirubin 0.2 (0.2-1.0) mg/dL AST 12 L (15-37) IU/L ALT 23 (14-63) IU/L Alkaline Phosphatase 113 (46-116) U/L Troponin I < 0.050 (0.000-0.056) ng/mL Total Protein 7.8 (6.4-8.2) g/dL Albumin 3.5 (3.4-5.0) g/dL Globulin 4.3 H (2.6-4.0) g/dL Albumin/Globulin Ratio 0.8 L (0.9-1.6) Triglycerides 156 (0-200) mg/dL Cholesterol 176 (50-200) mg/dL LDL Cholesterol, Calc 98 (60-180) mg/dL VLDL Cholesterol 31 (5-55) mg/dL HDL Cholesterol 47 (40-60) mg/dL Cholesterol/HDL Ratio 3.7 (3.3-6.0) TSH 3rd Generation 1.07 (0.36-3.74) uIU/mL Urine Color Urine Appearance Urine pH (5.0-8.0) Ur Specific [place] (1.001-1.035) Urine Protein (NEGATIVE) mg/dL Urine Glucose (UA) (NEGATIVE) mg/dL Urine Ketones (NEGATIVE) mg/dL Urine Occult Blood (NEGATIVE) Urine Nitrite (NEGATIVE) Urine Bilirubin (NEGATIVE) Urine Urobilinogen (<2.0) EU/dL Ur Leukocyte Esterase (NEGATIVE) Urine RBC (0-2/HPF) Urine WBC (0-5/HPF) Ur Epithelial Cells (NONE-FEW) Urine Bacteria (NEGATIVE) SARS-CoV-2 RNA (NIKA) (NEGATIVE) 01/14/21 01/14/21 01/15/21 Range/Units 22:15 22:18 01:04 WBC (4.0-11.0) K/uL RBC (4.30-5.90) M/uL Hgb (12.0-16.0) g/dL Hct (36.0-46.0) % MCV (80.0-98.0) fL MCH (27.0-32.0) pg MCHC (31.0-37.0) g/dL RDW Std Deviation (28.0-62.0) fl RDW Coeff of Anne (11.0-15.0) % Plt Count (150-400) K/uL MPV (7.40-12.00) fL Neut % (Auto) (48.0-80.0) % Lymph % (Auto) (16.0-40.0) % [place] % (Auto) (0.0-15.0) % Eos % (Auto) (0.0-7.0) % Baso % (Auto) (0.0-1.5) % Neut # (Auto) (1.4-5.7) K/uL Lymph # (Auto) (0.6-2.4) K/uL [place] # (Auto) (0.0-0.8) K/uL Eos # (Auto) (0.0-0.7) K/uL Baso # (Auto) (0.0-0.1) K/uL Nucleated RBC % /100WBC Nucleated RBCs # K/uL Sodium (136-145) mmol/L Potassium (3.5-5.1) mmol/L Chloride (98-107) mmol/L Carbon Dioxide (21.0-32.0) mmol/L BUN (7.0-18.0) mg/dL Creatinine (0.6-1.0) mg/dL Est Cr Clr Drug Dosing Estimated GFR (MDRD) ml/min Glucose (74-106) mg/dL Hemoglobin A1c 6.2 (4.5 - 6.2) % Calcium (8.5-10.1) mg/dL Total Bilirubin (0.2-1.0) mg/dL AST (15-37) IU/L ALT (14-63) IU/L Alkaline Phosphatase (46-116) U/L Troponin I < 0.050 (0.000-0.056) ng/mL Total Protein (6.4-8.2) g/dL Albumin (3.4-5.0) g/dL Globulin (2.6-4.0) g/dL Albumin/Globulin Ratio (0.9-1.6) Triglycerides (0-200) mg/dL Cholesterol (50-200) mg/dL LDL Cholesterol, Calc (60-180) mg/dL VLDL Cholesterol (5-55) mg/dL HDL Cholesterol (40-60) mg/dL Cholesterol/HDL Ratio (3.3-6.0) TSH 3rd Generation (0.36-3.74) uIU/mL Urine Color Urine Appearance Urine pH (5.0-8.0) Ur Specific [place] (1.001-1.035) Urine Protein (NEGATIVE) mg/dL Urine Glucose (UA) (NEGATIVE) mg/dL Urine Ketones (NEGATIVE) mg/dL Urine Occult Blood (NEGATIVE) Urine Nitrite (NEGATIVE) Urine Bilirubin (NEGATIVE) Urine Urobilinogen (<2.0) EU/dL Ur Leukocyte Esterase (NEGATIVE) Urine RBC (0-2/HPF) Urine WBC (0-5/HPF) Ur Epithelial Cells (NONE-FEW) Urine Bacteria (NEGATIVE) SARS-CoV-2 RNA (NIKA) NEGATIVE (NEGATIVE) 01/15/21 01/15/21 Range/Units 04:05 06:20 WBC (4.0-11.0) K/uL RBC (4.30-5.90) M/uL Hgb (12.0-16.0) g/dL Hct (36.0-46.0) % MCV (80.0-98.0) fL MCH (27.0-32.0) pg MCHC (31.0-37.0) g/dL RDW Std Deviation (28.0-62.0) fl RDW Coeff of Anne (11.0-15.0) % Plt Count (150-400) K/uL MPV (7.40-12.00) fL Neut % (Auto) (48.0-80.0) % Lymph % (Auto) (16.0-40.0) % [place] % (Auto) (0.0-15.0) % Eos % (Auto) (0.0-7.0) % Baso % (Auto) (0.0-1.5) % Neut # (Auto) (1.4-5.7) K/uL Lymph # (Auto) (0.6-2.4) K/uL [place] # (Auto) (0.0-0.8) K/uL Eos # (Auto) (0.0-0.7) K/uL Baso # (Auto) (0.0-0.1) K/uL Nucleated RBC % /100WBC Nucleated RBCs # K/uL Sodium (136-145) mmol/L Potassium (3.5-5.1) mmol/L Chloride (98-107) mmol/L Carbon Dioxide (21.0-32.0) mmol/L BUN (7.0-18.0) mg/dL Creatinine (0.6-1.0) mg/dL Est Cr Clr Drug Dosing Estimated GFR (MDRD) ml/min Glucose (74-106) mg/dL Hemoglobin A1c (4.5 - 6.2) % Calcium (8.5-10.1) mg/dL Total Bilirubin (0.2-1.0) mg/dL AST (15-37) IU/L ALT (14-63) IU/L Alkaline Phosphatase (46-116) U/L Troponin I < 0.050 (0.000-0.056) ng/mL Total Protein (6.4-8.2) g/dL Albumin (3.4-5.0) g/dL Globulin (2.6-4.0) g/dL Albumin/Globulin Ratio (0.9-1.6) Triglycerides (0-200) mg/dL Cholesterol (50-200) mg/dL LDL Cholesterol, Calc (60-180) mg/dL VLDL Cholesterol (5-55) mg/dL HDL Cholesterol (40-60) mg/dL Cholesterol/HDL Ratio (3.3-6.0) TSH 3rd Generation (0.36-3.74) uIU/mL Urine Color YELLOW Urine Appearance SLT CLOUDY Urine pH 6.0 (5.0-8.0) Ur Specific [place] 1.020 (1.001-1.035) Urine Protein NEGATIVE (NEGATIVE) mg/dL Urine Glucose (UA) NEGATIVE (NEGATIVE) mg/dL Urine Ketones NEGATIVE (NEGATIVE) mg/dL Urine Occult Blood MODERATE H (NEGATIVE) Urine Nitrite NEGATIVE (NEGATIVE) Urine Bilirubin NEGATIVE (NEGATIVE) Urine Urobilinogen 0.2 (<2.0) EU/dL Ur Leukocyte Esterase NEGATIVE (NEGATIVE) Urine RBC 1-4 (0-2/HPF) Urine WBC 0-2 (0-5/HPF) Ur Epithelial Cells OCCASIONAL (NONE-FEW) Urine Bacteria FEW (NEGATIVE) SARS-CoV-2 RNA (NIKA) (NEGATIVE) Result Diagrams: 01/15/21 13:29 01/14/21 22:15 Sepsis Event Note - Evaluation Sepsis Screening Result: No Definite Risk - Focused Exam Vital Signs: Vital Signs Temp Pulse Resp BP BP Pulse Ox 01/15/21 02:30 97.8 F 92 17 180/85 H 94 L 01/15/21 01:50 86 18 164/87 H 92 L 01/15/21 01:15 95 18 141/83 H 91 L 01/15/21 01:00 91 18 155/77 H 92 L 01/15/21 00:24 141/81 H 01/15/21 00:20 148/86 H 01/15/21 00:14 184/97 H 01/15/21 00:00 90 18 184/97 H 93 L 01/14/21 22:20 98 F 92 18 168/88 H 95 - Problem List (1) Tobacco abuse SNOMED Code(s): 253846675 ICD Code: Z72.0 - TOBACCO USE Status: Acute Current Visit: Yes (2) Chest pain SNOMED Code(s): 36849510 ICD Code: R07.9 - CHEST PAIN, UNSPECIFIED Status: Acute Current Visit: No (3) Uncontrolled hypertension SNOMED Code(s): 20849458, 98307510 ICD Code: I10 - ESSENTIAL (PRIMARY) HYPERTENSION Status: Acute Current Visit: No Problem List Initiated/Reviewed/Updated: Yes Orders Last 24hrs: Active Orders 24 hr Category Date Time Status Patient Status [ADT] Routine ADT 01/14/21 23:38 Active Antiembolic Devices [RC] PER UNIT ROUTINE Care 01/14/21 23:46 Active EKG Documentation Completion [RC] STAT Care 01/14/21 22:17 Active Influenza Vaccine Charge [RC] .DISCHARGE Care 01/15/21 03:00 Active Oxygen Therapy [RC] PRN Care 01/14/21 23:45 Active Pulse Oximetry [RC] PRN Care 01/14/21 23:45 Active RT Aerosol Therapy [RC] ASDIRECTED Care 01/14/21 23:46 Active Telemetry Monitoring [Cardiac Monitoring] [RC] Q8H Care 01/15/21 01:52 Active VTE/DVT Education [RC] PER UNIT ROUTINE Care 01/14/21 23:45 Active Vital Signs [RC] Q4H Care 01/14/21 23:45 Active Heart Healthy Diet [DIET] Diet 01/15/21 Breakfast Active Acetaminophen [TylenoL] Med 01/14/21 23:45 Active 650 mg PO Q4H PRN Albuterol/Ipratropium [DuoNeb 3.0-0.5 MG/3 ML] Med 01/14/21 23:45 Active 3 ml NEB Q4HRRT PRN Aspirin [Halfprin] Med 01/15/21 09:00 Active 81 mg PO DAILY FLU Vacc [id number] 36MOS UP/PF [Afluria Quad 2019- ( Med 01/15/21 10:00 Once 3YR UP)] 60 mcg IM .ONCE ONE Morphine Med 01/15/21 07:26 Active 1 mg IVPUSH Q3H PRN Nitroglycerin [Nitrostat] Med 01/15/21 00:05 Active 0.4 mg SL Q5M PRN Ondansetron [Zofran] Med 01/14/21 23:45 Active 4 mg IVPUSH Q4H PRN Sequential Compression Device [OM.PC] Per Unit Routine Oth 01/14/21 23:45 Ordered Medication Orders Acetaminophen (Acetaminophen 325 Mg Tab) 650 mg PO Q4H PRN PRN Reason: Pain (Mild 1-3)/fever Albuterol/Ipratropium (Albuterol/Ipratropium 3.0-0.5 Mg/3 Ml Neb Soln) 3 ml NEB Q4HRRT PRN PRN Reason: Shortness Of Breath/wheezing Aspirin (Aspirin 81 Mg Tab.Ec) 81 mg PO DAILY QUAN Influenza Virus Vaccine (Flu Vacc [id number] 36mos Up/Pf 60 Mcg/0.5 Ml Syringe) 60 mcg IM .ONCE ONE Stop: 01/15/21 10:01 Morphine Sulfate (Morphine 2 Mg/Ml Syringe) 1 mg IVPUSH Q3H PRN PRN Reason: Pain (severe 7-10) Nitroglycerin (Nitroglycerin 0.4 Mg Tab.Sl) 0.4 mg SL Q5M PRN PRN Reason: Chest Pain Last Admin: 01/15/21 00:24 Dose: 0.4 mg Documented by: Admin: 01/15/21 00:20 Dose: 0.4 mg Documented by: Admin: 01/15/21 00:14 Dose: 0.4 mg Documented by: KARLEY Ondansetron HCl (Ondansetron 4 Mg/2 Ml Sdv) 4 mg IVPUSH Q4H PRN PRN Reason: Nausea/Vomiting Assessment/Plan Comment:: ACS rule outtroponin negative x3. EKG No evidence of ST elevation CT Normal sinus rhythm heart rate of 91 Uncontrolled hypertensionpatient currently taking 20 mg lisinopril, 25 mg hydrochlorothiazide daily. Will increase dosage as needed to maintain blood pressures within normal range. Patient started on labetalol 20 mg as needed for systolic blood pressures above 180. Echocardiogram summary states LVEF 60-65%. Normal right ventricular systolic function, no aortic valve stenosis, no mitral regurg, no tricuspid valve regurg, no regional wall motion abnormalities Leukocytosispatient repeat CBC showed white blood cell count is 15. Will start 1 g Rocephin every 24 hours. asprin, SCD, protonix, heart healthy diet <Clau Armando - Last Filed: 01/16/21 22:46> H&P History of Present Illness - General Admit Problem/Dx: Admission Diagnosis/Problem Admission Diagnosis/Problem Chest pain - History of Present Illness Initial Comments - Free Text/Narative: I have seen and evaluated the patient and agree with the residents note unless specified in my note Exam - Vital Signs Vital Signs: Last Vital Signs Temp 35.8 C L 01/16/21 19:20 Pulse 92 01/16/21 19:20 Resp 19 01/16/21 19:20 BP 145/77 H 01/16/21 20:43 Pulse Ox 96 01/16/21 19:20 - Patient Data Lab Results Last 24 hrs: Laboratory Results - last 24 hr 01/16/21 01/16/21 Range/Units 05:49 05:49 WBC 14.02 H (4.0-11.0) K/uL RBC 5.08 (4.30-5.90) M/uL Hgb 14.9 (12.0-16.0) g/dL Hct 46.4 H (36.0-46.0) % MCV 91.3 (80.0-98.0) fL MCH 29.3 (27.0-32.0) pg MCHC 32.1 (31.0-37.0) g/dL RDW Std Deviation 47.1 (28.0-62.0) fl RDW Coeff of Anne 14 (11.0-15.0) % Plt Count 188 (150-400) K/uL MPV 12.90 H (7.40-12.00) fL Neut % (Auto) 79.4 (48.0-80.0) % Lymph % (Auto) 12.1 L (16.0-40.0) % [place] % (Auto) 7.5 (0.0-15.0) % Eos % (Auto) 0.9 (0.0-7.0) % Baso % (Auto) 0.1 (0.0-1.5) % Neut # (Auto) 11.1 H (1.4-5.7) K/uL Lymph # (Auto) 1.7 (0.6-2.4) K/uL [place] # (Auto) 1.1 H (0.0-0.8) K/uL Eos # (Auto) 0.1 (0.0-0.7) K/uL Baso # (Auto) 0.0 (0.0-0.1) K/uL Nucleated RBC % 0.0 /100WBC Nucleated RBCs # 0 K/uL Sodium 136 (136-145) mmol/L Potassium 3.5 (3.5-5.1) mmol/L Chloride 100 (98-107) mmol/L Carbon Dioxide 25.4 (21.0-32.0) mmol/L BUN 10 (7.0-18.0) mg/dL Creatinine 0.7 (0.6-1.0) mg/dL Est Cr Clr Drug Dosing 91.42 mL/min Estimated GFR (MDRD) > 60.0 ml/min Glucose 108 H (74-106) mg/dL Calcium 9.3 (8.5-10.1) mg/dL Magnesium 2.1 (1.8-2.4) mg/dL Result Diagrams: 01/16/21 05:49 01/16/21 05:49 Sepsis Event Note - Focused Exam Vital Signs: Vital Signs Temp Pulse Resp BP BP Pulse Ox 01/16/21 20:43 145/77 H 01/16/21 19:20 35.8 C L 92 19 145/77 H 96 01/16/21 16:00 36.1 C 87 16 160/80 H 95 01/16/21 11:53 36.2 C 88 16 141/88 H 94 L Orders Last 24hrs: Active Orders 24 hr Category Date Time Status [employer] Discontinue [Cardiac Monitoring Care 01/16/21 14:00 Active Discontinue] [RC] Click to Edit CBC WITH AUTO DIFF [HEME] AM Lab 01/17/21 05:11 Ordered CMP [COMPREHENSIVE METABOLIC PN,CMP] [CHEM] AM Lab 01/17/21 05:11 Ordered FLU Vacc [id number] 36MOS UP/PF [Afluria Quad 2019- ( Med 01/17/21 15:00 Once 3YR UP)] 60 mcg IM .ONCE ONE Piperacillin/Tazobactam [Piperacil-Tazobact] 3.375 gm Med 01/16/21 19:00 Active Sodium Chloride 0.9% [Normal Saline] 50 ml IV Q6H Medication Orders Acetaminophen (Acetaminophen 325 Mg Tab) 650 mg PO Q4H PRN PRN Reason: Pain (Mild 1-3)/fever Albuterol/Ipratropium (Albuterol/Ipratropium 3.0-0.5 Mg/3 Ml Neb Soln) 3 ml NEB Q4HRRT PRN PRN Reason: Shortness Of Breath/wheezing Aspirin (Aspirin 81 Mg Tab.Ec) 81 mg PO DAILY [facility] Last Admin: 01/16/21 09:33 Dose: 81 mg Documented by: LOS Cosigned by: BARRY Admin: 01/15/21 08:29 Dose: 81 mg Documented by: SANDER Hydrochlorothiazide (Hydrochlorothiazide 25 Mg Tab) 25 mg PO DAILY [facility] Last Admin: 01/16/21 09:34 Dose: 25 mg Documented by: LOS Cosigned by: BARRY Admin: 01/15/21 08:30 Dose: 25 mg Documented by: SANDER Piperacillin Sod/Tazobactam (Sod 3.375 gm/ Sodium Chloride) 50 mls @ 100 mls/hr IV Q6H [facility] Last Admin: 01/16/21 19:53 Dose: 100 mls/hr Documented by: DEANNE Influenza Virus Vaccine (Flu Vacc [id number] 36mos Up/Pf 60 Mcg/0.5 Ml Syringe) 60 mcg IM .ONCE ONE Stop: 01/17/21 15:01 Labetalol HCl (Labetalol 100 Mg/20 Ml Mdv) 20 mg IVPUSH Q6H PRN; Protocol PRN Reason: Hypertension Lisinopril (Lisinopril 10 Mg Tab) 20 mg PO DAILY [facility] Last Admin: 01/16/21 09:33 Dose: 20 mg Documented by: LOS Cosigned by: BARRY Admin: 01/15/21 08:29 Dose: 20 mg Documented by: SANDER Morphine Sulfate (Morphine 2 Mg/Ml Syringe) 1 mg IVPUSH Q3H PRN PRN Reason: Pain (severe 7-10) Nitroglycerin (Nitroglycerin 0.4 Mg Tab.Sl) 0.4 mg SL Q5M PRN PRN Reason: Chest Pain Last Admin: 01/15/21 00:24 Dose: 0.4 mg Documented by: Admin: 01/15/21 00:20 Dose: 0.4 mg Documented by: Admin: 01/15/21 00:14 Dose: 0.4 mg Documented by: KARLEY Ondansetron HCl (Ondansetron 4 Mg/2 Ml Sdv) 4 mg IVPUSH Q4H PRN PRN Reason: Nausea/Vomiting
[2021-01-15] MEDS ORDERED: Potassium Chloride 20 MEQ Tab.ER PO ONE (07:40)
[2021-01-15] MEDS: Aspirin 81 MG Tab.EC PO SCH (08:29)
[2021-01-15] MEDS: Lisinopril 10 MG Tab PO SCH (08:29)
[2021-01-15] MEDS: Hydrochlorothiazide 25 MG Tab PO SCH (08:30)
[2021-01-15] MEDS ORDERED: FLU Vacc QS2020-21 36MOS UP/PF 60 MCG/0.5 ML Syringe IM ONE (10:00)
[2021-01-15] MEDS ORDERED: Furosemide 20 MG/2 ML VIAL IVPUSH ONE (11:30)
[2021-01-15] MEDS ORDERED: Labetalol 100 MG/20 ML MDV IVPUSH PRN (11:36)
[2021-01-15] MEDS: cefTRIAXone 1 GM in Premix Bag 1 BAG IV SCH (14:52)
[2021-01-15] MEDS ORDERED: Lisinopril 10 MG Tab PO ONE (19:54)
[2021-01-16 06:41] LABS: BLOOD UREA NITROGEN,BUN 10 mg/dL (7.0-18.0); CARBON DIOXIDE,CO2 25.4 mmol/L (21.0-32.0); CHLORIDE,CL 100 mmol/L (98-107); GLUCOSE RANDOM 108 mg/dL (74-106); POTASSIUM,K 3.5 mmol/L (3.5-5.1); SODIUM,NA 136 mmol/L (136-145)
[2021-01-16] MEDS: Aspirin 81 MG Tab.EC PO SCH (09:33)
[2021-01-16] MEDS: Lisinopril 10 MG Tab PO SCH (09:33)
[2021-01-16] MEDS: Hydrochlorothiazide 25 MG Tab PO SCH (09:34)
--- NOTE | 2021-01-16 12:19 | PCM.PN ---
<Greg Severino - Last Filed: 01/16/21 20:37> - General Info Date of Service: 01/16/21 Subjective Update: Patient denies fever, chills, nausea, vomiting, abdominal pain, dysuria, hematuria. Patient states that she would like to go home soon. - Review of Systems General: Denies: Fever, Chills Pulmonary: Denies: Shortness of Breath, Cough Cardiovascular: Denies: Chest Pain Gastrointestinal: Denies: Abdominal Pain, Nausea, Vomiting Neurological: Denies: Confusion - Patient Data Vitals - Most Recent: Last Vital Signs Temp 97.2 F 01/16/21 11:53 Pulse 88 01/16/21 11:53 Resp 16 01/16/21 11:53 BP 141/88 H 01/16/21 11:53 Pulse Ox 94 L 01/16/21 11:53 Weight - Most Recent: 121.427 kg I&O - Last 24 Hours: Intake & Output 01/15/21 01/16/21 01/16/21 22:59 06:59 14:59 Intake Total 2090 1600 Output Total 3000 1100 Balance -910 500 Lab Results Last 24 Hours: Laboratory Results - last 24 hr 01/15/21 01/15/21 01/16/21 Range/Units 13:29 13:29 05:49 WBC 15.49 H 14.02 H (4.0-11.0) K/uL RBC 4.91 5.08 (4.30-5.90) M/uL Hgb 14.5 14.9 (12.0-16.0) g/dL Hct 44.8 46.4 H (36.0-46.0) % MCV 91.2 91.3 (80.0-98.0) fL MCH 29.5 29.3 (27.0-32.0) pg MCHC 32.4 32.1 (31.0-37.0) g/dL RDW Std Deviation 47.9 47.1 (28.0-62.0) fl RDW Coeff of Anne 14 14 (11.0-15.0) % Plt Count 193 188 (150-400) K/uL MPV 12.30 H 12.90 H (7.40-12.00) fL Neut % (Auto) 81.8 H 79.4 (48.0-80.0) % Lymph % (Auto) 9.7 L 12.1 L (16.0-40.0) % [place] % (Auto) 7.9 7.5 (0.0-15.0) % Eos % (Auto) 0.5 0.9 (0.0-7.0) % Baso % (Auto) 0.1 0.1 (0.0-1.5) % Neut # (Auto) 12.7 H 11.1 H (1.4-5.7) K/uL Lymph # (Auto) 1.5 1.7 (0.6-2.4) K/uL [place] # (Auto) 1.2 H 1.1 H (0.0-0.8) K/uL Eos # (Auto) 0.1 0.1 (0.0-0.7) K/uL Baso # (Auto) 0.0 0.0 (0.0-0.1) K/uL Nucleated RBC % 0.0 0.0 /100WBC Nucleated RBCs # 0 0 K/uL Sodium (136-145) mmol/L Potassium (3.5-5.1) mmol/L Chloride (98-107) mmol/L Carbon Dioxide (21.0-32.0) mmol/L BUN (7.0-18.0) mg/dL Creatinine (0.6-1.0) mg/dL Est Cr Clr Drug Dosing mL/min Estimated GFR (MDRD) ml/min Glucose (74-106) mg/dL Calcium (8.5-10.1) mg/dL Magnesium (1.8-2.4) mg/dL B-Natriuretic Peptide 22 (<100) PG/ML 01/16/21 Range/Units 05:49 WBC (4.0-11.0) K/uL RBC (4.30-5.90) M/uL Hgb (12.0-16.0) g/dL Hct (36.0-46.0) % MCV (80.0-98.0) fL MCH (27.0-32.0) pg MCHC (31.0-37.0) g/dL RDW Std Deviation (28.0-62.0) fl RDW Coeff of Anne (11.0-15.0) % Plt Count (150-400) K/uL MPV (7.40-12.00) fL Neut % (Auto) (48.0-80.0) % Lymph % (Auto) (16.0-40.0) % [place] % (Auto) (0.0-15.0) % Eos % (Auto) (0.0-7.0) % Baso % (Auto) (0.0-1.5) % Neut # (Auto) (1.4-5.7) K/uL Lymph # (Auto) (0.6-2.4) K/uL [place] # (Auto) (0.0-0.8) K/uL Eos # (Auto) (0.0-0.7) K/uL Baso # (Auto) (0.0-0.1) K/uL Nucleated RBC % /100WBC Nucleated RBCs # K/uL Sodium 136 (136-145) mmol/L Potassium 3.5 (3.5-5.1) mmol/L Chloride 100 (98-107) mmol/L Carbon Dioxide 25.4 (21.0-32.0) mmol/L BUN 10 (7.0-18.0) mg/dL Creatinine 0.7 (0.6-1.0) mg/dL Est Cr Clr Drug Dosing 91.42 mL/min Estimated GFR (MDRD) > 60.0 ml/min Glucose 108 H (74-106) mg/dL Calcium 9.3 (8.5-10.1) mg/dL Magnesium 2.1 (1.8-2.4) mg/dL B-Natriuretic Peptide (<100) PG/ML Med Orders - Current: Current Medications Acetaminophen (Acetaminophen 325 Mg Tab) 650 mg PO Q4H PRN PRN Reason: Pain (Mild 1-3)/fever Albuterol/Ipratropium (Albuterol/Ipratropium 3.0-0.5 Mg/3 Ml Neb Soln) 3 ml NEB Q4HRRT PRN PRN Reason: Shortness Of Breath/wheezing Aspirin (Aspirin 81 Mg Tab.Ec) 81 mg PO DAILY [facility] Last Admin: 01/16/21 09:33 Dose: 81 mg Documented by: Hydrochlorothiazide (Hydrochlorothiazide 25 Mg Tab) 25 mg PO DAILY [facility] Last Admin: 01/16/21 09:34 Dose: 25 mg Documented by: Ceftriaxone Sodium/Dextrose 1 (gm/ Premix) 50 mls @ 100 mls/hr IV Q24H [facility] Last Admin: 01/15/21 14:52 Dose: 100 mls/hr Documented by: Labetalol HCl (Labetalol 100 Mg/20 Ml Mdv) 20 mg IVPUSH Q6H PRN; Protocol PRN Reason: Hypertension Lisinopril (Lisinopril 10 Mg Tab) 20 mg PO DAILY [facility] Last Admin: 01/16/21 09:33 Dose: 20 mg Documented by: Morphine Sulfate (Morphine 2 Mg/Ml Syringe) 1 mg IVPUSH Q3H PRN PRN Reason: Pain (severe 7-10) Nitroglycerin (Nitroglycerin 0.4 Mg Tab.Sl) 0.4 mg SL Q5M PRN PRN Reason: Chest Pain Last Admin: 01/15/21 00:24 Dose: 0.4 mg Documented by: Ondansetron HCl (Ondansetron 4 Mg/2 Ml Sdv) 4 mg IVPUSH Q4H PRN PRN Reason: Nausea/Vomiting Discontinued Medications Aspirin (Aspirin 325 Mg Tab) 325 mg PO ONETIME ONE Stop: 01/14/21 23:48 Last Admin: 01/15/21 01:13 Dose: Not Given Documented by: Furosemide (Furosemide 20 Mg/2 Ml Vial) 20 mg IVPUSH NOW ONE Stop: 01/15/21 11:31 Last Admin: 01/15/21 11:51 Dose: 20 mg Documented by: Pantoprazole Sodium 40 mg/ (Sodium Chloride) 10 mls @ 300 mls/hr IV ONETIME ONE Stop: 01/14/21 23:46 Last Admin: 01/15/21 02:17 Dose: 300 mls/hr Documented by: Influenza Virus Vaccine (Pharmacy To Dose - Influenza Vaccine) 1 each IM ONETIME ONE Stop: 01/15/21 03:00 Influenza Virus Vaccine (Flu Vacc [id number] 36mos Up/Pf 60 Mcg/0.5 Ml Syringe) 60 mcg IM .ONCE ONE Stop: 01/15/21 10:01 Lisinopril (Lisinopril 10 Mg Tab) 20 mg PO ONETIME ONE Stop: 01/15/21 19:55 Last Admin: 01/15/21 20:15 Dose: 20 mg Documented by: Morphine Sulfate (Morphine 10 Mg/Ml Syringe) 1 mg IVPUSH Q3H PRN PRN Reason: Pain (severe 7-10) Stop: 01/15/21 23:45 Pantoprazole Sodium (Pantoprazole 40 Mg Vial) Confirm Administered Dose 40 mg .ROUTE .STK-MED ONE Stop: 01/15/21 02:14 Last Admin: 01/15/21 03:12 Dose: Not Given Documented by: Potassium Chloride (Potassium Chloride 20 Meq Tab.Er) 40 meq PO ONETIME ONE Stop: 01/15/21 07:41 Last Admin: 01/15/21 08:29 Dose: 40 meq Documented by: - Exam General: Alert, Oriented Lungs: Clear to Auscultation, Normal Respiratory Effort Cardiovascular: Regular Rate, Regular Rhythm GI/Abdominal Exam: Soft, Non-Tender, Mass (HIATIAL HERNIA) Extremities: No Pedal Edema Psy/Mental Status: Alert - Patient Data Lab Results Last 24 hrs: Laboratory Results - last 24 hr 01/15/21 01/15/21 01/16/21 Range/Units 13:29 13:29 05:49 WBC 15.49 H 14.02 H (4.0-11.0) K/uL RBC 4.91 5.08 (4.30-5.90) M/uL Hgb 14.5 14.9 (12.0-16.0) g/dL Hct 44.8 46.4 H (36.0-46.0) % MCV 91.2 91.3 (80.0-98.0) fL MCH 29.5 29.3 (27.0-32.0) pg MCHC 32.4 32.1 (31.0-37.0) g/dL RDW Std Deviation 47.9 47.1 (28.0-62.0) fl RDW Coeff of Anne 14 14 (11.0-15.0) % Plt Count 193 188 (150-400) K/uL MPV 12.30 H 12.90 H (7.40-12.00) fL Neut % (Auto) 81.8 H 79.4 (48.0-80.0) % Lymph % (Auto) 9.7 L 12.1 L (16.0-40.0) % [place] % (Auto) 7.9 7.5 (0.0-15.0) % Eos % (Auto) 0.5 0.9 (0.0-7.0) % Baso % (Auto) 0.1 0.1 (0.0-1.5) % Neut # (Auto) 12.7 H 11.1 H (1.4-5.7) K/uL Lymph # (Auto) 1.5 1.7 (0.6-2.4) K/uL [place] # (Auto) 1.2 H 1.1 H (0.0-0.8) K/uL Eos # (Auto) 0.1 0.1 (0.0-0.7) K/uL Baso # (Auto) 0.0 0.0 (0.0-0.1) K/uL Nucleated RBC % 0.0 0.0 /100WBC Nucleated RBCs # 0 0 K/uL Sodium (136-145) mmol/L Potassium (3.5-5.1) mmol/L Chloride (98-107) mmol/L Carbon Dioxide (21.0-32.0) mmol/L BUN (7.0-18.0) mg/dL Creatinine (0.6-1.0) mg/dL Est Cr Clr Drug Dosing mL/min Estimated GFR (MDRD) ml/min Glucose (74-106) mg/dL Calcium (8.5-10.1) mg/dL Magnesium (1.8-2.4) mg/dL B-Natriuretic Peptide 22 (<100) PG/ML 01/16/21 Range/Units 05:49 WBC (4.0-11.0) K/uL RBC (4.30-5.90) M/uL Hgb (12.0-16.0) g/dL Hct (36.0-46.0) % MCV (80.0-98.0) fL MCH (27.0-32.0) pg MCHC (31.0-37.0) g/dL RDW Std Deviation (28.0-62.0) fl RDW Coeff of Anne (11.0-15.0) % Plt Count (150-400) K/uL MPV (7.40-12.00) fL Neut % (Auto) (48.0-80.0) % Lymph % (Auto) (16.0-40.0) % [place] % (Auto) (0.0-15.0) % Eos % (Auto) (0.0-7.0) % Baso % (Auto) (0.0-1.5) % Neut # (Auto) (1.4-5.7) K/uL Lymph # (Auto) (0.6-2.4) K/uL [place] # (Auto) (0.0-0.8) K/uL Eos # (Auto) (0.0-0.7) K/uL Baso # (Auto) (0.0-0.1) K/uL Nucleated RBC % /100WBC Nucleated RBCs # K/uL Sodium 136 (136-145) mmol/L Potassium 3.5 (3.5-5.1) mmol/L Chloride 100 (98-107) mmol/L Carbon Dioxide 25.4 (21.0-32.0) mmol/L BUN 10 (7.0-18.0) mg/dL Creatinine 0.7 (0.6-1.0) mg/dL Est Cr Clr Drug Dosing 91.42 mL/min Estimated GFR (MDRD) > 60.0 ml/min Glucose 108 H (74-106) mg/dL Calcium 9.3 (8.5-10.1) mg/dL Magnesium 2.1 (1.8-2.4) mg/dL B-Natriuretic Peptide (<100) PG/ML Result Diagrams: 01/16/21 05:49 01/16/21 05:49 Sepsis Event Note - Evaluation Sepsis Screening Result: No Definite Risk - Focused Exam Vital Signs: Vital Signs Temp Pulse Resp BP BP Pulse Ox 01/16/21 11:53 97.2 F 88 16 141/88 H 94 L 01/16/21 09:33 145/85 H 01/16/21 07:38 98.3 F 83 19 107/79 94 L 01/16/21 04:31 96.9 F 80 14 144/73 H 94 L - Problem List & Annotations (1) Tobacco abuse SNOMED Code(s): 093115555 Code(s): Z72.0 - TOBACCO USE Status: Acute Current Visit: Yes (2) Chest pain SNOMED Code(s): 33664879 Code(s): R07.9 - CHEST PAIN, UNSPECIFIED Status: Acute Current Visit: No (3) Uncontrolled hypertension SNOMED Code(s): 37502890, 56936675 Code(s): I10 - ESSENTIAL (PRIMARY) HYPERTENSION Status: Acute Current Visit: No - Problem List Review Problem List Initiated/Reviewed/Updated: Yes - My Orders Last 24 Hours: My Active Orders 01/15/21 11:36 Labetalol [Normodyne] 20 mg IVPUSH Q6H PRN 01/15/21 14:44 Code Status [Resuscitation Status] Routine 01/15/21 14:45 cefTRIAXone [Rocephin in Dextrose,Iso-Osm 1 GM/50 ML] 1 gm Premix Bag 1 bag IV Q24H 01/16/21 10:53 Abdomen Pelvis w wo Cont [CT] Urgent - Plan Plan:: Diverticulitis CT abdomen pelvis impression liver demonstrates hepatic steatosis, moderate stool seen throughout the colon with focal segmental wall thickening and pericolonic inflammation of mid sigmoid colon consistent with low-grade diverticulitis. Stable large widemouth ventral hernia of the low midline abdomen containing herniated loops of nonobstructed colon and small bowel. Patient started on Zosyn. ACS rule outtroponin negative x3. EKG No evidence of ST elevation OR Normal sinus rhythm heart rate of 91 Uncontrolled hypertensionpatient currently taking 20 mg lisinopril, 25 mg hydrochlorothiazide daily. Will increase dosage to 40 mg lisinopril, labetalol 20 mg PRN for systolic blood pressures above 180. Echocardiogram summary states LVEF 60-65%. Normal right ventricular systolic function, no aortic valve stenosis, no mitral regurg, no tricuspid valve regurg, no regional wall motion abnormalities asprin, SCD, protonix, heart healthy diet <Clau Armando - Last Filed: 01/16/21 22:41> - General Info Subjective Update: I have seen and evaluated the patient and agree with the residents note unless specified in my note I - Patient Data Vitals - Most Recent: Last Vital Signs Temp 35.8 C L 01/16/21 19:20 Pulse 92 01/16/21 19:20 Resp 19 01/16/21 19:20 BP 145/77 H 01/16/21 20:43 Pulse Ox 96 01/16/21 19:20 I&O - Last 24 Hours: Intake & Output 01/16/21 01/16/21 01/16/21 06:59 14:59 22:59 Intake Total 1600 1390 Output Total 1100 1800 Balance 500 -410 Lab Results Last 24 Hours: Laboratory Results - last 24 hr 01/16/21 01/16/21 Range/Units 05:49 05:49 WBC 14.02 H (4.0-11.0) K/uL RBC 5.08 (4.30-5.90) M/uL Hgb 14.9 (12.0-16.0) g/dL Hct 46.4 H (36.0-46.0) % MCV 91.3 (80.0-98.0) fL MCH 29.3 (27.0-32.0) pg MCHC 32.1 (31.0-37.0) g/dL RDW Std Deviation 47.1 (28.0-62.0) fl RDW Coeff of Anne 14 (11.0-15.0) % Plt Count 188 (150-400) K/uL MPV 12.90 H (7.40-12.00) fL Neut % (Auto) 79.4 (48.0-80.0) % Lymph % (Auto) 12.1 L (16.0-40.0) % [place] % (Auto) 7.5 (0.0-15.0) % Eos % (Auto) 0.9 (0.0-7.0) % Baso % (Auto) 0.1 (0.0-1.5) % Neut # (Auto) 11.1 H (1.4-5.7) K/uL Lymph # (Auto) 1.7 (0.6-2.4) K/uL [place] # (Auto) 1.1 H (0.0-0.8) K/uL Eos # (Auto) 0.1 (0.0-0.7) K/uL Baso # (Auto) 0.0 (0.0-0.1) K/uL Nucleated RBC % 0.0 /100WBC Nucleated RBCs # 0 K/uL Sodium 136 (136-145) mmol/L Potassium 3.5 (3.5-5.1) mmol/L Chloride 100 (98-107) mmol/L Carbon Dioxide 25.4 (21.0-32.0) mmol/L BUN 10 (7.0-18.0) mg/dL Creatinine 0.7 (0.6-1.0) mg/dL Est Cr Clr Drug Dosing 91.42 mL/min Estimated GFR (MDRD) > 60.0 ml/min Glucose 108 H (74-106) mg/dL Calcium 9.3 (8.5-10.1) mg/dL Magnesium 2.1 (1.8-2.4) mg/dL Med Orders - Current: Current Medications Acetaminophen (Acetaminophen 325 Mg Tab) 650 mg PO Q4H PRN PRN Reason: Pain (Mild 1-3)/fever Albuterol/Ipratropium (Albuterol/Ipratropium 3.0-0.5 Mg/3 Ml Neb Soln) 3 ml NEB Q4HRRT PRN PRN Reason: Shortness Of Breath/wheezing Aspirin (Aspirin 81 Mg Tab.Ec) 81 mg PO DAILY [facility] Last Admin: 01/16/21 09:33 Dose: 81 mg Documented by: Hydrochlorothiazide (Hydrochlorothiazide 25 Mg Tab) 25 mg PO DAILY [facility] Last Admin: 01/16/21 09:34 Dose: 25 mg Documented by: Piperacillin Sod/Tazobactam (Sod 3.375 gm/ Sodium Chloride) 50 mls @ 100 mls/hr IV Q6H [facility] Last Admin: 01/16/21 19:53 Dose: 100 mls/hr Documented by: Influenza Virus Vaccine (Flu Vacc [id number] 36mos Up/Pf 60 Mcg/0.5 Ml Syringe) 60 mcg IM .ONCE ONE Stop: 01/17/21 15:01 Labetalol HCl (Labetalol 100 Mg/20 Ml Mdv) 20 mg IVPUSH Q6H PRN; Protocol PRN Reason: Hypertension Lisinopril (Lisinopril 10 Mg Tab) 20 mg PO DAILY [facility] Last Admin: 01/16/21 09:33 Dose: 20 mg Documented by: Morphine Sulfate (Morphine 2 Mg/Ml Syringe) 1 mg IVPUSH Q3H PRN PRN Reason: Pain (severe 7-10) Nitroglycerin (Nitroglycerin 0.4 Mg Tab.Sl) 0.4 mg SL Q5M PRN PRN Reason: Chest Pain Last Admin: 01/15/21 00:24 Dose: 0.4 mg Documented by: Ondansetron HCl (Ondansetron 4 Mg/2 Ml Sdv) 4 mg IVPUSH Q4H PRN PRN Reason: Nausea/Vomiting Discontinued Medications Aspirin (Aspirin 325 Mg Tab) 325 mg PO ONETIME ONE Stop: 01/14/21 23:48 Last Admin: 01/15/21 01:13 Dose: Not Given Documented by: Furosemide (Furosemide 20 Mg/2 Ml Vial) 20 mg IVPUSH NOW ONE Stop: 01/15/21 11:31 Last Admin: 01/15/21 11:51 Dose: 20 mg Documented by: Pantoprazole Sodium 40 mg/ (Sodium Chloride) 10 mls @ 300 mls/hr IV ONETIME ONE Stop: 01/14/21 23:46 Last Admin: 01/15/21 02:17 Dose: 300 mls/hr Documented by: Ceftriaxone Sodium/Dextrose 1 (gm/ Premix) 50 mls @ 100 mls/hr IV Q24H [facility] Last Admin: 01/16/21 14:08 Dose: 100 mls/hr Documented by: Influenza Virus Vaccine (Pharmacy To Dose - Influenza Vaccine) 1 each IM ONETIME ONE Stop: 01/15/21 03:00 Iopamidol (Iopamidol 755 Mg/Ml 500 Ml Multipack Bottle) 100 ml IVPUSH ONETIME STA Stop: 01/16/21 16:27 Last Admin: 01/16/21 16:31 Dose: 100 ml Documented by: Lisinopril (Lisinopril 10 Mg Tab) 20 mg PO ONETIME ONE Stop: 01/15/21 19:55 Last Admin: 01/15/21 20:15 Dose: 20 mg Documented by: Lisinopril (Lisinopril 10 Mg Tab) 20 mg PO ONETIME ONE Stop: 01/16/21 20:39 Last Admin: 01/16/21 20:43 Dose: 20 mg Documented by: Morphine Sulfate (Morphine 10 Mg/Ml Syringe) 1 mg IVPUSH Q3H PRN PRN Reason: Pain (severe 7-10) Stop: 01/15/21 23:45 Pantoprazole Sodium (Pantoprazole 40 Mg Vial) Confirm Administered Dose 40 mg .ROUTE .STK-MED ONE Stop: 01/15/21 02:14 Last Admin: 01/15/21 03:12 Dose: Not Given Documented by: Potassium Chloride (Potassium Chloride 20 Meq Tab.Er) 40 meq PO ONETIME ONE Stop: 01/15/21 07:41 Last Admin: 01/15/21 08:29 Dose: 40 meq Documented by: - Patient Data Lab Results Last 24 hrs: Laboratory Results - last 24 hr 01/16/21 01/16/21 Range/Units 05:49 05:49 WBC 14.02 H (4.0-11.0) K/uL RBC 5.08 (4.30-5.90) M/uL Hgb 14.9 (12.0-16.0) g/dL Hct 46.4 H (36.0-46.0) % MCV 91.3 (80.0-98.0) fL MCH 29.3 (27.0-32.0) pg MCHC 32.1 (31.0-37.0) g/dL RDW Std Deviation 47.1 (28.0-62.0) fl RDW Coeff of Anne 14 (11.0-15.0) % Plt Count 188 (150-400) K/uL MPV 12.90 H (7.40-12.00) fL Neut % (Auto) 79.4 (48.0-80.0) % Lymph % (Auto) 12.1 L (16.0-40.0) % [place] % (Auto) 7.5 (0.0-15.0) % Eos % (Auto) 0.9 (0.0-7.0) % Baso % (Auto) 0.1 (0.0-1.5) % Neut # (Auto) 11.1 H (1.4-5.7) K/uL Lymph # (Auto) 1.7 (0.6-2.4) K/uL [place] # (Auto) 1.1 H (0.0-0.8) K/uL Eos # (Auto) 0.1 (0.0-0.7) K/uL Baso # (Auto) 0.0 (0.0-0.1) K/uL Nucleated RBC % 0.0 /100WBC Nucleated RBCs # 0 K/uL Sodium 136 (136-145) mmol/L Potassium 3.5 (3.5-5.1) mmol/L Chloride 100 (98-107) mmol/L Carbon Dioxide 25.4 (21.0-32.0) mmol/L BUN 10 (7.0-18.0) mg/dL Creatinine 0.7 (0.6-1.0) mg/dL Est Cr Clr Drug Dosing 91.42 mL/min Estimated GFR (MDRD) > 60.0 ml/min Glucose 108 H (74-106) mg/dL Calcium 9.3 (8.5-10.1) mg/dL Magnesium 2.1 (1.8-2.4) mg/dL Result Diagrams: 01/16/21 05:49 01/16/21 05:49 Sepsis Event Note - Focused Exam Vital Signs: Vital Signs Temp Pulse Resp BP BP Pulse Ox 01/16/21 20:43 145/77 H 01/16/21 19:20 35.8 C L 92 19 145/77 H 96 01/16/21 16:00 36.1 C 87 16 160/80 H 95 01/16/21 11:53 36.2 C 88 16 141/88 H 94 L - My Orders Last 24 Hours: My Active Orders 01/16/21 14:00 Soft Sugar Cutter Discontinue [Cardiac Monitoring Discontinue] [RC] Click to Edit 01/17/21 15:00 FLU Vacc [id number] 36MOS UP/PF [Afluria Quad 2019- (3YR UP)] 60 mcg IM .ONCE ONE
[2021-01-16] MEDS: cefTRIAXone 1 GM in Premix Bag 1 BAG IV SCH (14:08)
[2021-01-16] MEDS ORDERED: Iopamidol 755 MG/ML 500 ML Multipack Bottle IVPUSH STA (16:26)
--- NOTE | 2021-01-16 17:40 | CT ---
Indication: Abdominal pain elevated white blood cells Technique: Volumetric multidetector CT images of the abdomen and pelvis were obtained before and after the administration of intravenous contrast using a urographic protocol. 100 cc Isovue 370 low osmolar intravenous contrast Comparison: CT abdomen and pelvis March 19, 2019 Findings: There is dependent bibasilar atelectasis versus scar. The liver demonstrates hepatic steatosis with subcentimeter hypodensities too small to characterize. The portal vein is patent. The gallbladder is unremarkable without evidence of radiopaque calculus. There is no significant common biliary ductal dilatation or abrupt cut off. The spleen is normal in enhancement and size. The stomach and duodenum are grossly unremarkable. The pancreas is normal in enhancement without significant atrophy. Again seen is likely a small adenoma within the left adrenal gland. The kidneys demonstrate preserved corticomedullary differentiation without evidence of obstructive uropathy. There is moderate stool seen throughout the colon with focal segmental wall thickening and pericolonic inflammation of the mid sigmoid colon consistent with low-grade diverticulitis. The appendix is unremarkable. There is no significant mesenteric, retroperitoneal, or pelvic sidewall lymph nodes. The aorta is nonaneurysmal. There is no significant atherosclerotic disease appreciated. The solid pelvic viscera are grossly unremarkable. There is no free fluid or free air. There is demonstration of a large, wide-mouth ventral hernia of the low midline abdomen containing loops of colon and small bowel, similar to previous exam. There is no evidence of obstruction. The lumbar vertebral body heights are grossly maintained with mild to moderate multilevel degenerative disc disease. There is no evidence of displaced fracture or dislocation. There is moderate facet arthrosis. Impression: Focal segmental thickening and pericolonic inflammation of the proximal sigmoid colon consistent with low-grade diverticulitis. Stable large, wide-mouth ventral hernia defect of the low midline abdomen containing herniated loops of nonobstructed colon and small bowel. Please note that all CT scans at this facility use dose modulation, iterative reconstruction, and/or weight-based dosing when appropriate to reduce radiation dose to as low as reasonably achievable. Dictated by Joe Gomez MD @ Jan 16 2021 5:32PM Signed by Dr. Joe Gomez @ Jan 16 2021 5:40PM
[2021-01-16] MEDS: Piperacillin/Tazobactam 3.375 GM in Sodium Chloride 0.9% 50 ML IV SCH (19:53)
[2021-01-16] MEDS ORDERED: Lisinopril 10 MG Tab PO ONE (20:38)
[2021-01-17] MEDS: Piperacillin/Tazobactam 3.375 GM in Sodium Chloride 0.9% 50 ML IV SCH ×3 (00:56→12:32)
[2021-01-17 07:05] LABS: BLOOD UREA NITROGEN,BUN 14 mg/dL (7.0-18.0); CARBON DIOXIDE,CO2 23.8 mmol/L (21.0-32.0); CHLORIDE,CL 101 mmol/L (98-107); GLUCOSE RANDOM 110 mg/dL (74-106); POTASSIUM,K 4.1 mmol/L (3.5-5.1); SODIUM,NA 137 mmol/L (136-145)
[2021-01-17] MEDS: Aspirin 81 MG Tab.EC PO SCH (09:30)
[2021-01-17] MEDS: Lisinopril 10 MG Tab PO SCH (09:31)
[2021-01-17] MEDS: Hydrochlorothiazide 25 MG Tab PO SCH (09:31)
--- NOTE | 2021-01-17 12:36 | PCM.DCSUM1 ---
Discharge Summary - Hospital Course Free Text/Narrative:: 50-year-old female past medical history of uncontrolled hypertension, tobacco use admitted to the medical floor for ACS rule out. Patient presented to the ER due to chest pain that she was having for the past 2 days. Patient initially reported to the ER with chest pain but left AMA because she stated she felt fine. Later on that day patient came back to the ED with continued chest pain. On admission patient denied fever, chills, nausea, vomiting, diarrhea, constipation, dysuria, frequency, urinary retention, shortness of breath. Patient did continue to state mild chest pain also stating chest pressure when attempting to lay flat in the bed. White blood cell count on admission 16.9, potassium 3.4, magnesium 2.0, troponin negative x3. Patient given 325 mg p.o. aspirin one time in the ED. Will monitor blood pressure and monitor for any signs ACS. Patient had mild UTI on admission but did not seem modest enough to cause elevated white blood cell count. CT abdomen pelvis was ordered to rule out any intra-abdominal source of infection. CT impression showed pericolonic inflammation of proximal sigmoid colon consistent with low-grade diverticulitis which better explains patient's increased white blood cell count. Patient started on Zosyn antibiotic post CT results. CT also demonstrated large [place] ventral hernia defect of the low midline abdomen containing herniated loops of nonobstructing colon and small bowel. Dr. Martinez, general surgery, was consulted and advised the patient should follow-up with a general surgeon post hospitalization for assessment and treatment of her hernia. Patient discharged home on oral Augmentin for low-grade diverticulitis. Patient also discharged on aspirin, Lasix as needed for lower leg edema due to standing for long periods for work, lisinopril 40 mg p.o. daily. Patient's lisinopril dosage on mission was 20 mg which failed to control her blood pressure. Patient advised to review all medications with her physician at next primary care visit. - Discharge Data Discharge Date: 01/17/21 Discharge Disposition: Home, Self-Care 01 Condition: Stable - Referral to Home Health Primary Care Physician: [facility] - Discharge Diagnosis/Problem(s) (1) Tobacco abuse SNOMED Code(s): 797790328 ICD Code: Z72.0 - TOBACCO USE Status: Acute (2) Chest pain SNOMED Code(s): 59670768 ICD Code: R07.9 - CHEST PAIN, UNSPECIFIED Status: Acute (3) Uncontrolled hypertension SNOMED Code(s): 91641767, 67334813 ICD Code: I10 - ESSENTIAL (PRIMARY) HYPERTENSION Status: Acute - Discharge Plan Prescriptions/Med Rec: Amoxicillin/Clavulanate K [Augmentin 875-125 MG] 1 tab PO BID 5 Days #10 tablet Aspirin [Halfprin] 81 mg PO DAILY 30 Days #30 tab.ec Furosemide [Lasix] 20 mg PO DAILY PRN #7 tab PRN Reason: Edema lisinopriL [Lisinopril] 40 mg PO DAILY 21 Days #21 tablet Home Medications: Home Meds hydroCHLOROthiazide [Hydrochlorothiazide] 25 mg PO DAILY 03/19/19 [History] Amoxicillin/Clavulanate K [Augmentin 875-125 MG] 1 tab PO BID 5 Days #10 tablet 01/17/21 [Rx] Aspirin [Halfprin] 81 mg PO DAILY 30 Days #30 tab.ec 01/17/21 [Rx] Furosemide [Lasix] 20 mg PO DAILY PRN #7 tab 01/17/21 [Rx] lisinopriL [Lisinopril] 40 mg PO DAILY 21 Days #21 tablet 01/17/21 [Rx] Patient Handouts: Furosemide Oral Tablets, Ventral Hernia, Amoxicillin; Clavulanic Acid Tablets, Lisinopril tablets, Aspirin capsules or tablets extended release Forms: ED Department Discharge Referrals: Sulema Sánchez NP [Ordering Only Provider] - 02/08/21 1:00 pm - Discharge Summary/Plan Comment DC Time >30 min.: Yes - General Info Date of Service: 01/17/21 - Review of Systems General: Denies: Fever, Chills Pulmonary: Denies: Shortness of Breath, Cough Cardiovascular: Denies: Chest Pain, Palpitations, Edema Gastrointestinal: Denies: Abdominal Pain, Decreased Appetite, Nausea, Vomiting Genitourinary: Denies: Dysuria Neurological: Denies: Confusion, Dizziness, Headache Psychiatric: Denies: Confusion - Patient Data Vitals - Most Recent: Last Vital Signs Temp 97.2 F 01/17/21 11:30 Pulse 86 01/17/21 11:30 Resp 14 01/17/21 11:30 BP 147/67 H 01/17/21 11:30 Pulse Ox 95 01/17/21 11:30 Weight - Most Recent: 267 lb 11.2 oz I&O - Last 24 hours: Intake & Output 01/16/21 01/17/21 01/17/21 22:59 06:59 14:59 Intake Total 1390 470 Output Total 1800 1800 Balance -410 -1330 Lab Results - Last 24 hrs: Laboratory Results - last 24 hr 01/17/21 01/17/21 Range/Units 06:08 06:08 WBC 13.57 H (4.0-11.0) K/uL RBC 5.18 (4.30-5.90) M/uL Hgb 15.0 (12.0-16.0) g/dL Hct 47.5 H (36.0-46.0) % MCV 91.7 (80.0-98.0) fL MCH 29.0 (27.0-32.0) pg MCHC 31.6 (31.0-37.0) g/dL RDW Std Deviation 48.1 (28.0-62.0) fl RDW Coeff of Anen 14 (11.0-15.0) % Plt Count 196 (150-400) K/uL MPV 12.60 H (7.40-12.00) fL Neut % (Auto) 81.9 H (48.0-80.0) % Lymph % (Auto) 9.7 L (16.0-40.0) % Eddy % (Auto) 6.9 (0.0-15.0) % Eos % (Auto) 1.4 (0.0-7.0) % Baso % (Auto) 0.1 (0.0-1.5) % Neut # (Auto) 11.1 H (1.4-5.7) K/uL Lymph # (Auto) 1.3 (0.6-2.4) K/uL Eddy # (Auto) 0.9 H (0.0-0.8) K/uL Eos # (Auto) 0.2 (0.0-0.7) K/uL Baso # (Auto) 0.0 (0.0-0.1) K/uL Nucleated RBC % 0.0 /100WBC Nucleated RBCs # 0 K/uL Sodium 137 (136-145) mmol/L Potassium 4.1 (3.5-5.1) mmol/L Chloride 101 (98-107) mmol/L Carbon Dioxide 23.8 (21.0-32.0) mmol/L BUN 14 (7.0-18.0) mg/dL Creatinine 0.9 (0.6-1.0) mg/dL Est Cr Clr Drug Dosing 71.11 mL/min Estimated GFR (MDRD) > 60.0 ml/min Glucose 110 H (74-106) mg/dL Calcium 9.3 (8.5-10.1) mg/dL Total Bilirubin 0.4 (0.2-1.0) mg/dL AST 13 L (15-37) IU/L ALT 28 (14-63) IU/L Alkaline Phosphatase 107 (46-116) U/L Total Protein 7.5 (6.4-8.2) g/dL Albumin 3.2 L (3.4-5.0) g/dL Globulin 4.3 H (2.6-4.0) g/dL Albumin/Globulin Ratio 0.7 L (0.9-1.6) Med Orders - Current: Current Medications Acetaminophen (Acetaminophen 325 Mg Tab) 650 mg PO Q4H PRN PRN Reason: Pain (Mild 1-3)/fever Last Admin: 01/16/21 22:49 Dose: 650 mg Documented by: Albuterol/Ipratropium (Albuterol/Ipratropium 3.0-0.5 Mg/3 Ml Neb Soln) 3 ml NEB Q4HRRT PRN PRN Reason: Shortness Of Breath/wheezing Aspirin (Aspirin 81 Mg Tab.Ec) 81 mg PO DAILY [facility] Last Admin: 01/17/21 09:30 Dose: 81 mg Documented by: Hydrochlorothiazide (Hydrochlorothiazide 25 Mg Tab) 25 mg PO DAILY [facility] Last Admin: 01/17/21 09:31 Dose: 25 mg Documented by: Piperacillin Sod/Tazobactam (Sod 3.375 gm/ Sodium Chloride) 50 mls @ 100 mls/hr IV Q6H [facility] Last Admin: 01/17/21 12:32 Dose: 100 mls/hr Documented by: Influenza Virus Vaccine (Flu Vacc [id number] 36mos Up/Pf 60 Mcg/0.5 Ml Syringe) 60 mcg IM .ONCE ONE Stop: 01/17/21 15:01 Labetalol HCl (Labetalol 100 Mg/20 Ml Mdv) 20 mg IVPUSH Q6H PRN; Protocol PRN Reason: Hypertension Lisinopril (Lisinopril 10 Mg Tab) 20 mg PO DAILY [facility] Last Admin: 01/17/21 09:31 Dose: 20 mg Documented by: Morphine Sulfate (Morphine 2 Mg/Ml Syringe) 1 mg IVPUSH Q3H PRN PRN Reason: Pain (severe 7-10) Nitroglycerin (Nitroglycerin 0.4 Mg Tab.Sl) 0.4 mg SL Q5M PRN PRN Reason: Chest Pain Last Admin: 01/15/21 00:24 Dose: 0.4 mg Documented by: Ondansetron HCl (Ondansetron 4 Mg/2 Ml Sdv) 4 mg IVPUSH Q4H PRN PRN Reason: Nausea/Vomiting Discontinued Medications Aspirin (Aspirin 325 Mg Tab) 325 mg PO ONETIME ONE Stop: 01/14/21 23:48 Last Admin: 01/15/21 01:13 Dose: Not Given Documented by: Furosemide (Furosemide 20 Mg/2 Ml Vial) 20 mg IVPUSH NOW ONE Stop: 01/15/21 11:31 Last Admin: 01/15/21 11:51 Dose: 20 mg Documented by: Pantoprazole Sodium 40 mg/ (Sodium Chloride) 10 mls @ 300 mls/hr IV ONETIME ONE Stop: 01/14/21 23:46 Last Admin: 01/15/21 02:17 Dose: 300 mls/hr Documented by: Ceftriaxone Sodium/Dextrose 1 (gm/ Premix) 50 mls @ 100 mls/hr IV Q24H [facility] Last Admin: 01/16/21 14:08 Dose: 100 mls/hr Documented by: Influenza Virus Vaccine (Pharmacy To Dose - Influenza Vaccine) 1 each IM ONETIME ONE Stop: 01/15/21 03:00 Iopamidol (Iopamidol 755 Mg/Ml 500 Ml Multipack Bottle) 100 ml IVPUSH ONETIME STA Stop: 01/16/21 16:27 Last Admin: 01/16/21 16:31 Dose: 100 ml Documented by: Lisinopril (Lisinopril 10 Mg Tab) 20 mg PO ONETIME ONE Stop: 01/15/21 19:55 Last Admin: 01/15/21 20:15 Dose: 20 mg Documented by: Lisinopril (Lisinopril 10 Mg Tab) 20 mg PO ONETIME ONE Stop: 01/16/21 20:39 Last Admin: 01/16/21 20:43 Dose: 20 mg Documented by: Morphine Sulfate (Morphine 10 Mg/Ml Syringe) 1 mg IVPUSH Q3H PRN PRN Reason: Pain (severe 7-10) Stop: 01/15/21 23:45 Pantoprazole Sodium (Pantoprazole 40 Mg Vial) Confirm Administered Dose 40 mg .ROUTE .STK-MED ONE Stop: 01/15/21 02:14 Last Admin: 01/15/21 03:12 Dose: Not Given Documented by: Potassium Chloride (Potassium Chloride 20 Meq Tab.Er) 40 meq PO ONETIME ONE Stop: 01/15/21 07:41 Last Admin: 01/15/21 08:29 Dose: 40 meq Documented by: - Exam General: Reports: Alert, Oriented Lungs: Reports: Clear to Auscultation, Normal Respiratory Effort Cardiovascular: Reports: Regular Rate, Regular Rhythm GI/Abdominal Exam: Normal Bowel Sounds, Non-Tender, Distended, Other (ventral hernia) Extremities: No Pedal Edema Psy/Mental Status: Reports: Alert
[2021-01-17] MEDS ORDERED: FLU Vacc QS2020-21 36MOS UP/PF 60 MCG/0.5 ML Syringe IM ONE (15:00)
--- NOTE | 2021-01-17 16:28 | US ---
The ECHO report has been scanned into [employer] and can be seen in this patient's EMR (Electronic Medical Record) under the REPORTS section. The report has also been scanned into PACS. GRICEL
--- NOTE | 2021-01-17 16:30 | CONS ---
DATE OF CONSULTATION: 01/17/2021 DATE OF : 1970 PRIMARY CARE PHYSICIAN: [facility] REASON FOR CONSULTATION: Ventral hernia. HISTORY OF PRESENT ILLNESS: The patient is a pleasant 50-year-old female who was admitted 2 days ago for chest pain to the hospitalist team. The patient said she was having some severe chest pressure. She was admitted to the hospital for this rule out myocardial infarction and also for her uncontrolled hypertension. The patient now says that chest pain has gone. She is feeling really good. She denies any chest pain or abdominal pain. She did get a CT scan which did show some segmental thickening and paracolic inflammation of the proximal sigmoid consistent with low-grade diverticulitis. The patient also had a fairly large ventral hernia with colon and small bowel non obstructed. This appears similar to a CT scan she had done about 2 years ago, though now may be slightly larger. The patient says that she has had the hernia for the past 6 to 7 years. She cannot quite remember. She said it used to be very small, and it was slowly growing until it got very large about 2 years ago. She does not think it has really grown in the last 2 years. She said 6 to 7 years ago, she used to see primary care about it. However, at that time, it was per her report much smaller and was told that if it does not hurt or cause any pain that she does not need to worry about it. The patient says that hernia never really causes her any pain or discomfort other than occasionally when she bumps it wrong. She denies any obstructive symptoms like nausea, vomiting, or bowel issues. She also from her and says it has been getting bigger and larger and larger, though she says it has been about the same size last 2 years. PAST MEDICAL HISTORY: Significant for hypertension. HOME MEDICATIONS: 1. Hydrochlorothiazide 20 mg p.o. daily. 2. Lisinopril 40 mg p.o. daily. 3. Lasix 20 mg p.o. daily p.r.n. 4. Aspirin 81 mg p.o. daily. ALLERGIES: No known drug allergies. PAST SURGICAL HISTORY: Tubal ligation. FAMILY HISTORY: 1. She says her grandmother had colon cancer. 2. Heart disease runs in the family. REVIEW OF SYSTEMS: A complete 12+ review of systems was done. It was negative except for what was in HPI. SOCIAL HISTORY: The patient denies any illicit drug use. She denies any alcohol use. She does smoke about 10 cigarettes per day. PHYSICAL EXAMINATION: GENERAL: The patient is sitting comfortably in her hospital bed. She is alert and oriented in no acute distress. VITAL SIGNS: Temperature is 97.2, pulse is 86, blood pressure is 147/67, saturating 95% on room air. LUNGS: No rhonchi or wheezing heard. Slightly diminished bilaterally. HEART: Regular rate and rhythm. No murmur appreciated. ABDOMEN: Soft and nondistended. She does have a good sized ventral hernia in her lower umbilicus. It does protrude out. Quite some size about the size of maybe 2 soft balls. This skin over the hernia has become thickened. She also has some multiple areas of scabs and underlying abdominal vessels have signs of hypertrophy, we can see through. Not able to really reduce the hernia. Hernia is soft and nontender. NEUROLOGIC: Grossly, no motor or neurologic deficit noted. LABORATORY DATA: White cell count is 13.57, hemoglobin 15, platelet count is 196. Sodium 137, potassium 4.1, BUN is 14, creatinine 0.9, glucose is 110. IMAGING DATA: As per HPI. I did review the report and looked at the images. ASSESSMENT AND PLAN: This is a pleasant 50-year-old female who has a fairly large ventral hernia. She does not have any signs of obstruction but is fairly large. On CT scan, it looks about a 4th of her abdominal spaces actually in the hernia sac. The skin over the hernia site does show discolorations and signs that it might start to be compromised. I did go over with the patient what a hernia was and explained to her repair. I did go over that she should think about fixing this even though it is not causing her pain because I am worried about skin integrity overlying the hernia. This could break down leading to an ulcer or an exposed bowel, which would be not good. The patient seems to understand. I went over that because she has so much of her intra-abdominal, extra-abdominal that she should have this at a larger place so they can monitor intraabdominal pressures as she may develop intra-abdominal compartment syndrome. The patient understands. I answered all the patient's questions. The patient did talk to the hospital team. They will make sure the patient does have followup at a tertiary care center for her hernia. I did go over with the patient that if the hernia gets hard or stuck or very painful, she needs to come in right away for a potential emergent surgery. All the patient's questions were answered. WENCESLAO STINSON /[id number]
== END 2021-01-17 14:12 | disposition home or self-care (01) ==
LOC: MW.ED 22:09 → MW.MS 23:38
PROVIDERS: ADMIT Student in an Organized Health Care Education/Training Program; ATTEND Student in an Organized Health Care Education/Training Program
DX: R07.89 Other chest pain (principal); I10 Essential (primary) hypertension; K52.9 Noninfective gastroenteritis and colitis, unspecified; K43.9 Ventral hernia without obstruction or gangrene; F17.210 Nicotine dependence, cigarettes, uncomplicated; Z79.82 Long term (current) use of aspirin; Z20.822 Contact with and (suspected) exposure to COVID-19; Z87.440 Personal history of urinary (tract) infections; Z98.890 Other specified postprocedural states
CPT/HCPCS: 36415; 74178; 80048; 80053; 80061; 81001; 83036; 83735; 83880; 84443; 84484; 85025; 87635; 93005; 93306; A9270; C9113; J0696; J1940; J2543; Q9967; 93010; 96374; 99285-25; U0002

== ENCOUNTER 2022-05-28 19:34 | Emergency (ER) | payer OTHER ==
[2022-05-28] MEDS ORDERED: Tetracaine HCl/PF 0.5% 4 ML Bottle EYEBOTH ONE (19:36)
[2022-05-28] MEDS ORDERED: Erythromycin Base 0.5% Ophth Oint 1 GM Tube EYELF ONE (19:52)
== END 2022-05-28 20:26 | disposition home or self-care (01) ==
LOC: MW.ED 19:34
DX: S05.02XA Injury of conjunctiva and corneal abrasion without foreign body, left eye, initial encounter (principal)
CPT/HCPCS: 99283; A9270